=== PATIENT | female | born 1995 | race Caucasian/White ===

== ENCOUNTER 2017-05-25 15:33 | Emergency (ER) | payer MEDICAID, SELFPAY ==
[2017-05-25 15:36] VITALS: BP 131/92; PULSE 95; RESP 18; TEMP 36.1; O2SAT 99; BMI 26.1
--- NOTE | 2017-05-25 16:04 | ED.DCSUM_ITS ---
- ER Visit Summary Date of Service: 05/25/17 Chief Complaint: Anxiety History of Present Illness: The patient is a 22 F with anxiety that became worse today. Patient states she has been out of her Celexa for the past 2 weeks. Patient states she went out of town and missed an appointment with her primary care physician to get her Celexa refilled. Patient states she has an appointment tomorrow. Patient states that today however she became more anxious and depressed. Patient has a history of PTSD, depression, and anxiety. Patient states that she was feeling stress at work which triggered her anxiety. Patient denies any suicidal or homicidal ideations. She also admits to some dysuria over the past few days. Patient states she has been having difficulty with her urination. Patient states she feels like she is retaining urine. Patient denies any fevers or chills. Patient denies any nausea or vomiting. Patient denies any back pain. Physical Examination: All signs are stable. Patient is afebrile. Patient is in no acute distress. Oral mucosa is pink and moist. Heart was regular rate and rhythm. Lungs are clear and equal bilaterally. There is good respiratory effort noted. Abdomen is soft. There is mild suprapubic tenderness. There is no rebound or guarding noted. Cranial nerves II through XII are intact. There are no focal motor or sensory deficits noted. Patient is somewhat depressed and tearful at times on examination. Patient denies any suicidal homicidal ideations. Patient does have good judgment and insight. Patient does have normal speech pattern. Test Results: Urinalysis was obtained and did not show any evidence for urinary tract infection Treatment Plan: Patient was given a prescription for her Celexa for 10 days. Patient was instructed to follow-up with her primary care physician as scheduled. Patient understood and was agreeable with the plan. All were answered. Disposition: Discharged home Impression: Acute anxiety This note was generated with [employer]fair dictation software. It may contain incorrect words, spelling, and punctuation that were not noted in review of the chart prior to signing ED Disposition - Plan for ED Patient: Disposition: Home or Assisted Living Chief Complaint: Anxiety Diagnosis: Acute anxiety Instructions: ED Panic Attack Prescriptions: Citalopram Hydrobromide [Celexa] 20 mg PO DAILY #10 tab Referrals: Rashard Bennett MD [STAFF PHYSICIAN] -
[2017-05-25] MEDS: hydrOXYzine PAM 25 MG Capsule PO (16:34)
[2017-05-25 16:41] LABS: Bacteria 0 SEEN /hpf (None Seen); Mucous, Urine 0 SEEN /hpf (<or=2+); Red Blood Cells-Urine 0 SEEN /hpf (0-5); White Blood Cells 0 SEEN /hpf (0-5)
[2017-05-25 17:13] LABS: Color, Urine Yellow (Yellow); Glucose, Dipstick Normal (Normal); Ketone-Dipstick Negative (Negative); Leukocyte Esterase-Dipstick Negative /ul (Negative); Nitrite-Dipstick Negative (Negative); Occult Blood-Urine Negative /ul (Negative); Protein-Dipstick Negative (Negative); Urine Bilirubin Dipstick Negative (Negative); Urine Clarity Sl. Cloudy (Clear); Urine Urobilinogen Normal (Normal)
[2017-05-25 17:44] LABS: Squamous Epithelial Cells - UA 0-5 SEEN /hpf (5-10)
[2017-05-25 18:55] VITALS: BP 112/61; PULSE 70; RESP 16; O2SAT 100
== END 2017-05-25 18:56 | disposition home or self-care (01) ==
PROVIDERS: Emergency Provider Emergency Medicine; Family Provider Family Medicine; PCP Family Medicine
DX: F41.9 Anxiety disorder, unspecified (principal); F32.9 Major depressive disorder, single episode, unspecified; F43.10 Post-traumatic stress disorder, unspecified
CPT/HCPCS: 81001; 99283

== ENCOUNTER 2017-05-29 14:57 | Emergency (ER) | payer MEDICAID, SELFPAY ==
[2017-05-29 14:59] VITALS: BP 120/83; PULSE 128; RESP 20; TEMP 36.9; O2SAT 100; BMI 25.8
[2017-05-29] MEDS: LORazepam 2 MG/ML Syringe 0.5 MG IV (15:29)
[2017-05-29 15:32] VITALS: PULSE 87; RESP 14; O2SAT 100
[2017-05-29 16:10] VITALS: PULSE 74; RESP 12; O2SAT 96
--- NOTE | 2017-05-29 16:30 | ED.VISSUMM ---
- ER Visit Summary Date of Service: 05/29/17 Chief Complaint: Anxiety, shortness of breath, chest pain, paresthesia I am freaking out History of Present Illness: The patient is a 22 F who presents because of palpitations, chest pain, shortness of breath, paresthesia in all extremities and perioral. She states I am freaking out. She states when this started she was talking with her significant other about life. Nothing stressful. She denies headache. She denies any visual, ocular auditory symptoms. She denies trouble with speech or swallowing. She does report dry mouth. She does report palpitations and chest pain. She does report shortness of breath but denies cough. There is no pleuritic chest pain. She does complain of nausea without vomiting diarrhea or abdominal pain. She denies any urologic symptoms. She denies myalgias arthralgias. She denies rash. Neuro is positive for paresthesia throughout. She does report depression anxiety and PTSD. Physical Examination: Next field blood pressure 120/83 temperature 98 heart rate 128 respirations 28 and pulse ox 100% on room air. She is tearful and anxious. She is fidgeting. Head is atraumatic normocephalic. Pupils are equal round reactive. Extraocular muscles are intact. TMs are pearly white with landmarks noted. Nares patent with no drainage. Posterior pharynx without erythema or exudate. Uvula is midline. There is no dysphonia or dysphasia. Trachea is midline. There is no stridor with auscultation of the neck. She has bilateral [place] sign. Heart is rapid and regular without murmur, gallop or rub. Lungs are clear to auscultation. Abdomen is soft nontender. Lower extremity reveals no swelling, discoloration, leg vein distention, palpable cords or tenderness on the distribution of the deep venous system. She is alert and oriented ?3. Motor sensory intact. DTRs are brisk. There is no clonus or Babinski sign. Cranial 2 through 12 are intact. Test Results: None Emergency Department Course and Treatment: Patient's history and physical exam is consistent with anxiety/panic attack. She is presently hyperventilating. IV was established and she received 0.5 mg of Ativan IV push. Treatment Plan: Patient was reassessed at 1630. She is resting comfortably talking to significant other and family member. She was instructed to decrease the Celexa to 20 mg which she was on prior to discontinuation. Stop taking the 40 mg. And she was given a prescription for Ativan 0.5 mg. Disposition: Discharged home in stable and improved condition Impression: Anxiety reaction/panic attack Depression with history of anxiety disorder History of PTSD This note was generated with [employer] dictation software. It may contain incorrect words, spelling, and punctuation that were not noted in review of the chart prior to signing ED Disposition - Plan for ED Patient: Disposition: Home or Assisted Living Chief Complaint: Anxiety Instructions: ED Stress React, ED Panic Attack Prescriptions: Lorazepam [Ativan] 0.5 mg PO TID PRN PRN #5 tab PRN Reason: Anxiety Referrals: Emerson Thao MD [Primary Care Provider] - As Needed Additional Instructions: Discontinue Celexa 40 mg and resume 20 mg tablets.
[2017-05-29 16:52] VITALS: BP 102/65; PULSE 92; RESP 16; O2SAT 97
--- NOTE | 2017-05-29 16:53 | ED.RN ---
PT GIVEN WRITTEN AND VERBAL DISCHARGE INSTRUCTIONS AND HOME GOING PRESCRIPTIONS. PT VERBALIZES UNDERSTANDING AND DENIES ANY FURTHER QUESTIONS. PT IV D/C AND COVERED WITH 2X2 GAUZE DRESSING AND PAPER TAPE. PT AMBULATORY HOME WITH SIGNIFICANT OTHER, PT ADVISED NOT TO DRIVE.
== END 2017-05-29 16:56 | disposition home or self-care (01) ==
PROVIDERS: Emergency Provider Emergency Medicine; Family Provider Family Medicine; PCP Family Medicine
DX: F41.0 Panic disorder [episodic paroxysmal anxiety] (principal); F32.9 Major depressive disorder, single episode, unspecified; F43.10 Post-traumatic stress disorder, unspecified; Z87.891 Personal history of nicotine dependence
CPT/HCPCS: 96374; 99283

== ENCOUNTER 2017-06-13 18:54 | Emergency (ER) | payer MEDICAID, SELFPAY ==
[2017-06-13 18:55] VITALS: BP 112/61; PULSE 104; RESP 16; TEMP 37.1; O2SAT 99; BMI 25.7
[2017-06-13] MEDS: Naproxen 500 MG Tablet PO (19:19)
--- NOTE | 2017-06-13 19:20 | RAD_ITS ---
STUDY: X-RAY - RIGHT ANKLE REASON FOR EXAM: Female, 22 years old. Fall. Swelling and bruising. TECHNIQUE: 3 view(s) of the ankle. COMPARISON: None. FINDINGS: Normal visualized distal tibia and fibula. Normal medial and lateral malleoli. Normal tibiotalar articulation and ankle mortise. Normal visualized talus and calcaneus. The visualized subtalar, talonavicular, calcaneocuboid and tarsal articulations are normal. There is no demonstrated fracture. The soft tissue structures are unremarkable. RAD/Ankle min 3 Views IMPRESSION: Normal x-ray examination of the ankle. Electronically Signed: Scott Velez MD at 19:41 EDT , Service support ,
--- NOTE | 2017-06-13 19:56 | ED.VISSUMM ---
- ER Visit Summary Date of Service: 06/13/17 Chief Complaint: Injury right ankle History of Present Illness: The patient is a 22 F dense because of injury to right ankle. Had a plantar inversion mechanism injury. He states she heard a crack. She complains of pain with plantar flexion and weightbearing. She denies prior injury. She denies paresthesia, anesthesia buttocks. She has no other complaints. Physical Examination: There is soft tissue swelling over the lateral malleolus with pain to palpation of the distal 3 cm the lateral malleolus. There is pain abrasion over the anterior talofibular ligament. There is no laxity with anterior drawer test. There is no pain the patient of the medial malleolus. Is no pain the patient with base of the fifth metatarsal. DP PT pulses are palpable. Test Results: Three-view x-ray of the ankle was obtained and reviewed by me as negative. There is no evidence of fracture, and there is minimal soft tissue swelling. Emergency Department Course and Treatment: Based on the [place] ankle rule radiologic imaging is indicated. Treatment Plan: Anti-inflammatory, ice and elevation Disposition: Discharged home with appropriate home-going instructions Impression: Right ankle sprain, anterior talofibular ligament This note was generated with [employer] dictation software. It may contain incorrect words, spelling, and punctuation that were not noted in review of the chart prior to signing ED Disposition - Plan for ED Patient: Disposition: Home or Assisted Living Chief Complaint: Lower Extremity Injury Instructions: ED Sprain Ankle W X Ray Referrals: Emerson Thao MD [Primary Care Provider] - 10-14 Days if not better Additional Instructions: Withdrawal the alphabet with your foot 4-6 times a day. Apply ice 20-30 minutes at a time 6-8 times a day. Do not wear shoes with heel until pain-free and no running up or down inclines. Take either 4 Advil every 8 hours or 2 Aleve every 12 hours for the next 3-5 days for pain
--- NOTE | 2017-06-13 19:59 | ED.DCSUM_ITS ---
- ER Visit Summary Date of Service: 06/13/17 Chief Complaint: Injury right ankle History of Present Illness: The patient is a 22 F dense because of injury to right ankle. Had a plantar inversion mechanism injury. He states she heard a crack. She complains of pain with plantar flexion and weightbearing. She denies prior injury. She denies paresthesia, anesthesia buttocks. She has no other complaints. Physical Examination: There is soft tissue swelling over the lateral malleolus with pain to palpation of the distal 3 cm the lateral malleolus. There is pain abrasion over the anterior talofibular ligament. There is no laxity with anterior drawer test. There is no pain the patient of the medial malleolus. Is no pain the patient with base of the fifth metatarsal. DP PT pulses are palpable. Test Results: Three-view x-ray of the ankle was obtained and reviewed by me as negative. There is no evidence of fracture, and there is minimal soft tissue swelling. Emergency Department Course and Treatment: Based on the [place] ankle rule radiologic imaging is indicated. Treatment Plan: Anti-inflammatory, ice and elevation Disposition: Discharged home with appropriate home-going instructions Impression: Right ankle sprain, anterior talofibular ligament This note was generated with [employer] dictation software. It may contain incorrect words, spelling, and punctuation that were not noted in review of the chart prior to signing ED Disposition - Plan for ED Patient: Disposition: Home or Assisted Living Chief Complaint: Lower Extremity Injury Instructions: ED Sprain Ankle W X Ray Referrals: Emerson Thao MD [Primary Care Provider] - 10-14 Days if not better Additional Instructions: Withdrawal the alphabet with your foot 4-6 times a day. Apply ice 20-30 minutes at a time 6-8 times a day. Do not wear shoes with heel until pain-free and no running up or down inclines. Take either 4 Advil every 8 hours or 2 Aleve every 12 hours for the next 3-5 days for pain
[2017-06-13 20:09] VITALS: PULSE 102; RESP 14; O2SAT 98
== END 2017-06-13 20:09 | disposition home or self-care (01) ==
PROVIDERS: Emergency Provider Emergency Medicine; Family Provider Family Medicine; PCP Family Medicine
DX: S93.491A Sprain of other ligament of right ankle, initial encounter (principal); X50.1XXA Overexertion from prolonged static or awkward postures, initial encounter; Y93.9 Activity, unspecified; Y92.89 Other specified places as the place of occurrence of the external cause; Y99.9 Unspecified external cause status
CPT/HCPCS: 73610; 99282

== ENCOUNTER 2017-07-23 02:10 | Emergency (ER) | payer MEDICAID, SELFPAY ==
--- NOTE | 2017-07-23 02:10 | DT_ITS ---
This patient was seen during an EMR downtime July 19, 2017 - July 26, 2017. This patient may have a combination of paper and electronic documentation or all paper documentation. All documentation is viewable within the e-chart portion of [facility] for each patient visit.
== END 2017-07-23 02:35 | disposition home or self-care (01) ==
PROVIDERS: Emergency Provider Emergency Medicine; Family Provider Family Medicine; PCP Family Medicine
DX: J01.00 Acute maxillary sinusitis, unspecified (principal)
CPT/HCPCS: 99283

== ENCOUNTER 2017-07-26 12:51 | Emergency (ER) | payer MEDICAID, SELFPAY ==
[2017-07-26] VITALS (7 sets, daily range): BP systolic 105–138; BP diastolic 60–85; PULSE 47–69; RESP 16–17; TEMP 36.2; O2SAT 98–100; BMI 25.2
--- NOTE | 2017-07-26 12:51 | DT_ITS ---
This patient was seen during an EMR downtime July 19, 2017 - July 26, 2017. This patient may have a combination of paper and electronic documentation or all paper documentation. All documentation is viewable within the e-chart portion of [employer] for each patient visit.
--- NOTE | 2017-07-26 13:19 | EKG12_ITS ---
Test Reason : Blood Pressure : / mmHG Vent. Rate : 044 BPM Atrial Rate : 044 BPM P-R Int : 154 ms QRS Dur : 082 ms QT Int : 384 ms P-R-T Axes : 040 049 030 degrees QTc Int : 328 ms Marked sinus bradycardia Abnormal ECG Confirmed by SHANTELL CUNNINGHAM MD ([id number]), development editor VIVIAN CERVANTES ([id number] on 07/28/2017 5:15:28 PM Referred By: Mahin Blue Confirmed By:SHANTELL CUNNINGHAM MD
--- NOTE | 2017-07-26 13:20 | ED.VISSUMM ---
- ER Visit Summary Date of Service: 07/26/17 Chief Complaint: Suicidal ideation History of Present Illness: The patient is a 22 F with history of bipolar disorder who presents for 1 week of suicidal ideation. Patient states that she feels like she is going crazy. 2 weeks ago she had her Celexa abruptly discontinued and changed to Seroquel by her doctor. She feels like her symptoms are much worse now. She is having suicidal thoughts, such as driving her car into a tree. She is unable to sleep and feels depressed and anxious. She called a crisis line last night and was told to taper off her Seroquel but did not receive any further assistance. She is legitimately concerned that she may harm herself and thus presents for evaluation. Physical Examination: Vital signs: afebrile, hemodynamically stable, no hypoxia on room air General: well nourished, well developed, in no distress and not tearful Skin: warm, dry, no rash, no pallor HEENT: normocephalic and atraumatic; PERRL, EOMI, moist mucous membranes Cardiovascular: regular rate and rhythm without murmurs, no peripheral edema, 2+ pulses all distal extremities Respiratory: No increased work of breathing, lungs are clear to auscultation bilaterally, no rales, rhonchi or wheezing Abdominal: Abdomen is soft, nontender with normoactive bowel sounds, no guarding or rebound, no masses MSK: Moves all extremities, no deformities, normal strength Neuro: Awake and alert, oriented ?4. No facial droop, sensation and motor function intact and symmetric Psych: Depressed affect, tearful, positive suicidal ideation, no evidence of response to internal stimuli, no hallucinations Test Results: Abnormal Lab Results 07/26/17 07/26/17 07/26/17 13:57 13:57 13:57 WBC 5.7 RBC 4.27 Hgb 13.6 Hct 40.4 MCV 94.6 MCH 31.9 MCHC 33.7 RDW 12.4 RDW Differential 42.0 Plt Count 255 MPV 11.3 Immature Gran % (Auto) 0.200 Neut % (Auto) 71.1 H Lymph % (Auto) 22.3 [place] % (Auto) 4.8 Eos % (Auto) 1.2 Baso % (Auto) 0.4 Absolute Neuts (auto) 4.0 Absolute Lymphs (auto) 1.26 Total Counted Not Reportable Sodium 141 Potassium 3.9 Chloride 108 H Carbon Dioxide 25.0 Anion Gap 8 BUN 14 Creatinine 0.72 Est GFR (MDRD) Af Amer 133 Est GFR (MDRD) Non-Af 110 BUN/Creatinine Ratio 19.5 Glucose 78 Calcium 9.4 Total Bilirubin 0.40 AST 29 ALT 33 Alkaline Phosphatase 54 Total Protein 8.0 Albumin 3.9 Globulin 4.1 Albumin/Globulin Ratio 1.0 Serum , Qual Urine Opiates Screen Urine Methadone Screen Ur Barbiturates Screen Ur Phencyclidine Scrn Ur Amphetamines Screen U Methamphetamin-MDMA U Benzodiazepines Scrn Urine Cocaine Screen U Cannabinoids Screen Ur Drug Screen Comment Ethyl Alcohol < 3.0 07/26/17 07/26/17 13:57 14:05 WBC RBC Hgb Hct MCV MCH MCHC RDW RDW Differential Plt Count MPV Immature Gran % (Auto) Neut % (Auto) Lymph % (Auto) [place] % (Auto) Eos % (Auto) Baso % (Auto) Absolute Neuts (auto) Absolute Lymphs (auto) Total Counted Sodium Potassium Chloride Carbon Dioxide Anion Gap BUN Creatinine Est GFR (MDRD) Af Amer Est GFR (MDRD) Non-Af BUN/Creatinine Ratio Glucose Calcium Total Bilirubin AST ALT Alkaline Phosphatase Total Protein Albumin Globulin Albumin/Globulin Ratio Serum , Qual NEGATIVE Urine Opiates Screen NEGATIVE Urine Methadone Screen NEGATIVE Ur Barbiturates Screen NEGATIVE Ur Phencyclidine Scrn NEGATIVE Ur Amphetamines Screen NEGATIVE U Methamphetamin-MDMA NEGATIVE U Benzodiazepines Scrn NEGATIVE Urine Cocaine Screen NEGATIVE U Cannabinoids Screen POSITIVE H Ur Drug Screen Comment Ethyl Alcohol Emergency Department Course and Treatment: Patient was medically cleared for evaluation by crisis counselor. Patient is actively suicidal and would benefit from inpatient treatment of her depression and suicidal ideation. Patient was accepted to [facility] for transfer for further inpatient management. Treatment Plan: [] Disposition: [] Impression: Suicidal ideation This note was generated with [employer] dictation software. It may contain incorrect words, spelling, and punctuation that were not noted in review of the chart prior to signing ED Disposition - Plan for ED Patient: Chief Complaint: Mental Health Referrals: Emerson Thao MD [Primary Care Provider] -
[2017-07-26 14:06] LABS: Absolute Lymphocyte Count 1.26 X10^3/ul (0.83-4.51); Basophil# 0.02 X10^3/uL; Basophil% 0.4 % (0-1); Eosinophil# 0.07 X10^3/uL; Eosinophils% 1.2 % (0-5); Hematocrit 40.4 % (37-47); Hemoglobin 13.6 g/dl (12.0-15.0); Lymphocyte # 1.26 X10^3/ul (4.0); Lymphocyte % 22.3 % (19-41); Mean Corp Hgb Conc 33.7 g/gl (32-36); Mean Corpuscular Hgb 31.9 pg (27.0-32.0); Mean Corpuscular Volume 94.6 fL (81-99); Mean Platelet Vol. 11.3 fl (6.2-12.0); Monocyte# 0.27 X10^3/uL; Monocyte% 4.8 % (0-10); Neutrophil # 4.03 X10^3/uL (2.7-7.7); Neutrophil % 71.1 % (47-70); POSITIVE COUNT NO; POSITIVE DIFFERENTIAL NO; POSITIVE MORPHOLOGY NO; Platelet Count 255 K/mm3 (150-450); RBC Distribution Width CV 12.4 % (11.6-14.6); Red Blood Count 4.27 M/mm3 (4.2-5.4); White Blood Count 5.7 K/mm3 (4.4-11.0)
[2017-07-26 14:21] LABS: AST(SGOT) 29 U/L (15-37); Alanine Aminotransfer ALT/SGPT 33 U/L (13-56); Albumin, Serum 3.9 g/dL (3.2-5.0); Alkaline Phosphatase 54 U/L (45-117); Anion Gap 8 (5-15); BUN 14 mg/dL (7-18); BUN/Creat Ratio 19.5 RATIO (10-20); Calcium,Total 9.4 mg/dL (8.5-10.1); Chloride 108 mmol/L (98-107); Creatinine, Serum 0.72 mg/dL (0.55-1.02); EST Glomerular Filtration Rate 110 mL/min (>60); Est Glom Filt Rate - Afr Amer 133 mL/min (>60); Globulin 4.1 g/dL (2.2-4.2); Glucose 78 mg/dL (74-106); Potassium 3.9 mmol/L (3.5-5.1); Sodium Level 141 mmol/L (136-145)
[2017-07-26 14:30] LABS: Alcohol, Blood (Medical)-Serum < 3.0 mg/dL
[2017-07-26 14:31] LABS: Amphetamine Urine VISTA NEGATIVE (<1000 ng/mL); Barbiturate Urine VISTA NEGATIVE (< 200 ng/mL); Benzodiazepine Urine VISTA NEGATIVE (< 200 ng/mL); Cocaine Urine VISTA NEGATIVE (< 300 ng/mL); Ecstacy Urine VISTA NEGATIVE (< 500 ng/mL); Methadone Urine VISTA NEGATIVE (< 300 ng/mL); PCP Urine VISTA NEGATIVE (< 25 ng/mL); THC Urine VISTA POSITIVE (< 50 ng/mL); Vista UDS pH Range 7
[2017-07-26 14:45] LABS: Pregnancy, Serum, hCG Quali. NEGATIVE Negative (0-9 Nonpreg)
--- NOTE | 2017-07-26 15:06 | NURSING ---
TALKED TO VALERY AT [facility]. IS HEADING RIGHT OVER
--- NOTE | 2017-07-26 20:20 | ED.RN ---
transport to [facility] pt.
== END 2017-07-26 20:20 | disposition short-term general hospital (02) ==
LOC: ED 13:22
PROVIDERS: Emergency Provider Emergency Medicine; Family Provider Family Medicine; PCP Family Medicine
DX: R45.851 Suicidal ideations (principal); F31.9 Bipolar disorder, unspecified
CPT/HCPCS: 80053; 80307; 80320; 84703; 85025; 93005; 99284; G0480

== ENCOUNTER 2017-12-15 14:18 | Emergency (ER) | payer MEDICAID, SELFPAY ==
[2017-12-15 14:19] VITALS: BP 118/61; PULSE 61; RESP 16; TEMP 36.3; O2SAT 100; BMI 25.9
--- NOTE | 2017-12-15 14:31 | ED.VISSUMM ---
- ER Visit Summary Date of Service: 12/15/17 Chief Complaint: Nasal congestion, postnasal drainage, sore throat, water behind ears and nocturnal cough History of Present Illness: The patient is a 22 F who has been seen at urgent care center and other facilities and diagnosed with serous otitis and allergic rhinitis. She denies fever, chills night sweats. She denies ocular, visual or auditory symptoms. She denies ringing or ears, decreased hearing. She does report cough at night because of the postnasal drainage. Her cough is nonproductive. She denies sour eructation or heartburn. She states she was not able to afford the medication the nurse practitioner prescribed. Physical Examination: Vital signs noted and are normal. Pupils equal round reactive paradoxic muscle intact. TMs reveal dullness on the right side. Otherwise otoscopic exam normal. Nares patent with slight clear drainage with bryant nasal mucosa. Uvula midline. No erythema XA. There is postnasal drainage noted. Trachea midline. There is 1 mobile smooth nontender left anterior cervical node noted. Heart is regular without murmur, gallop or rub. S1 and S2 are normal. Lungs are clear to auscultation with good movement of air bilaterally. Test Results: None Emergency Department Course and Treatment: Patient was told she has allergic rhinitis. Recommended nasal spray. She states she is presently on Flonase. Will add a steroid nasal spray and referral to [facility] since she does not have insurance. Treatment Plan: Nasal spray Disposition: Discharge follow-up at [facility] Impression: 1. Allergic rhinitis 2. Serous otitis right ear This note was generated with [employer] dictation software. It may contain incorrect words, spelling, and punctuation that were not noted in review of the chart prior to signing ED Disposition - Plan for ED Patient: Disposition: Home or Assisted Living Chief Complaint: Sore Throat Instructions: ED Allergy Nasal Prescriptions: Beclomethasone Dipropionate [Beconase Aq] 25 gm NS BID #1 spray Referrals: Emerson Thao MD [Primary Care Provider] - [facility] [NON-STAFF] - 1-2 Weeks Additional Instructions: Your prescription was electronically transmitted to [facility] your designated pharmacy.
--- NOTE | 2017-12-15 14:36 | ED.DCSUM_ITS ---
- ER Visit Summary Date of Service: 12/15/17 Chief Complaint: Nasal congestion, postnasal drainage, sore throat, water behind ears and nocturnal cough History of Present Illness: The patient is a 22 F who has been seen at urgent care center and other facilities and diagnosed with serous otitis and allergic rhinitis. She denies fever, chills night sweats. She denies ocular, visual or auditory symptoms. She denies ringing or ears, decreased hearing. She does report cough at night because of the postnasal drainage. Her cough is nonproductive. She denies sour eructation or heartburn. She states she was not able to afford the medication the nurse practitioner prescribed. Physical Examination: Vital signs noted and are normal. Pupils equal round reactive paradoxic muscle intact. TMs reveal dullness on the right side. Otherwise otoscopic exam normal. Nares patent with slight clear drainage with bryant nasal mucosa. Uvula midline. No erythema XA. There is postnasal drainage noted. Trachea midline. There is 1 mobile smooth nontender left anterior cervical node noted. Heart is regular without murmur, gallop or rub. S1 and S2 are normal. Lungs are clear to auscultation with good movement of air bilaterally. Test Results: None Emergency Department Course and Treatment: Patient was told she has allergic rhinitis. Recommended nasal spray. She states she is presently on Flonase. Will add a steroid nasal spray and referral to [facility] since she does not have insurance. Treatment Plan: Nasal spray Disposition: [facility] Impression: 1. Allergic rhinitis 2. Serous otitis right ear This note was generated with [employer] dictation software. It may contain incorrect words, spelling, and punctuation that were not noted in review of the chart prior to signing ED Disposition - Plan for ED Patient: Disposition: Home or Assisted Living Chief Complaint: Sore Throat Instructions: ED Allergy Nasal Prescriptions: Beclomethasone Dipropionate [Beconase Aq] 25 gm NS BID #1 spray Referrals: Emerson Thao MD [Primary Care Provider] - [facility] [NON-STAFF] - 1-2 Weeks Additional Instructions: Your prescription was electronically transmitted to [facility] your designated pharmacy.
== END 2017-12-15 14:50 | disposition home or self-care (01) ==
PROVIDERS: Emergency Provider Emergency Medicine; Family Provider Family Medicine; PCP Family Medicine
DX: J30.9 Allergic rhinitis, unspecified (principal); H65.91 Unspecified nonsuppurative otitis media, right ear
CPT/HCPCS: 99281

== ENCOUNTER 2018-05-09 06:30 | Emergency (ER) | payer MEDICAID, SELFPAY ==
[2018-05-09 06:31] VITALS: BP 111/71; PULSE 58; RESP 16; TEMP 36.8; O2SAT 100; BMI 25.7
[2018-05-09 06:35] VITALS: RESP 16
--- NOTE | 2018-05-09 06:44 | ED.VIS.GEN ---
History of Present Illness Chief Complaint: Chest Other Narrative: Stated for the last 2 days she has noticed some muscle spasms under her right breast where her ribs are. She is never had this before. Current severity is resolved. They come and go. No home treatment. She is never had this before. Wanted to get checked out. Denies associated symptoms. Past Medical History - Allergies and Home Meds Allergies/Adverse Reactions: Allergies No Known Allergies Allergy (Verified 05/09/18 06:39) Primary Care Physician: Emerson Thao MD [Primary Care Provider] - Prior records reviewed: Yes Past Medical History: - - Anxiety Surgical History: noncontributory Lives: With Family Smoking Status: Current some day smoker Alcohol: None Drugs: None Review of Systems General: Denies: Chills, Fever, Sweats Eyes: Denies: Visual changes - bilaterally, Diplopia ENT: Denies: Rhinorrhea, Sore throat Cardiovascular: Denies: Chest pain, Palpitations Respiratory: Denies: Dyspnea, Cough, Dyspnea on exertion Gastrointestinal: Denies: Abdominal pain, Nausea, Vomiting, Diarrhea, Melena, Hematochezia Genitourinary: Denies: Dysuria, Hematuria, Frequency Musculoskeletal: Denies: Back pain, Extremity Pain Skin: Denies: Rash, Wounds Neurological: Denies: Headache, Weakness, Numbness Physical Exam Vital Signs/Narrative: Vital Signs Temp Pulse Resp BP Pulse Ox 05/09/18 06:35 16 05/09/18 06:31 98.3 F 58 L 16 111/71 100 General: Well nourished, Well developed, No Acute Distress Head: Normocephalic, Atraumatic Eyes: Perrl, EOMI ENT: Moist mucous membranes, No rhinorrhea Neck: Supple, Nontender Cardiovascular: Regular rate, Regular rhythm, No murmurs Respiratory: No distress, CTA bilaterally, Chest nontender Abdomen: Soft, Nontender, Nondistended, Normal bowel sounds Back: Nontender, Normal Inspection Extremities: Nontender, No edema Skin: Normal color, No rash Neurological: Alert, Oriented x3, Cranial nerves II-XII grossly intact, Normal Strength, Normal Sensation Psychological: Normal affect, Normal Mood Diagnostic/Tx/Re-eval - Medical Decision Making Reassured. At this time she is having intermittent intercostal muscle spasms. Will use ibuprofen and follow-up as an outpatient. ED Disposition - Plan for ED Patient: Disposition: Home or Assisted Living Diagnosis: Muscle spasm Instructions: Muscle Spasm Referrals: Emerson Thao MD [Primary Care Provider] -
[2018-05-09 06:58] VITALS: RESP 16
== END 2018-05-09 06:58 | disposition home or self-care (01) ==
LOC: ED 06:52
PROVIDERS: Emergency Provider Emergency Medicine; Family Provider Family Medicine; PCP Family Medicine
DX: M62.838 Other muscle spasm (principal); F17.200 Nicotine dependence, unspecified, uncomplicated
CPT/HCPCS: 99282

== ENCOUNTER 2018-06-05 22:39 | Emergency (ER) | payer MEDICAID, SELFPAY ==
[2018-06-05 22:40] VITALS: BP 105/59; PULSE 70; RESP 16; TEMP 36.6; O2SAT 99; BMI 25.8
--- NOTE | 2018-06-05 23:10 | ED.VIS.GEN ---
History of Present Illness Chief Complaint: Allergic Reaction Informant: Patient Narrative: Patient stated stated just prior to arrival she drank a great Minute Maid and developed red face. [place] hot. She felt like her throat might be scratchy. Came for further evaluation. It is resolved. No home treatment. She does have anxiety she got her anxiety worked up so she came in. She is never had anything like this happen before. Past Medical History - Allergies and Home Meds Allergies/Adverse Reactions: Allergies No Known Allergies Allergy (Verified 06/05/18 22:46) Primary Care Physician: Emerson Thao MD [Primary Care Provider] - Prior records reviewed: Yes Past Medical History: - - Anxiety Surgical History: noncontributory Smoking Status: Never smoker Alcohol: None Drugs: None Review of Systems General: Denies: Chills, Fever, Sweats Eyes: Denies: Visual changes - bilaterally, Diplopia ENT: Denies: Rhinorrhea, Sore throat Cardiovascular: Denies: Chest pain, Palpitations Respiratory: Denies: Dyspnea, Cough, Dyspnea on exertion Gastrointestinal: Denies: Abdominal pain, Nausea, Vomiting, Diarrhea, Melena, Hematochezia Genitourinary: Denies: Dysuria, Hematuria, Frequency Musculoskeletal: Denies: Back pain, Extremity Pain Skin: Denies: Rash, Wounds Neurological: Denies: Headache, Weakness, Numbness Physical Exam Vital Signs/Narrative: Vital Signs Temp Pulse Resp BP Pulse Ox 06/05/18 22:40 98 F 70 16 105/59 L 99 General: Well nourished, Well developed, No Acute Distress Head: Normocephalic, Atraumatic Eyes: Perrl, EOMI ENT: Moist mucous membranes, No rhinorrhea Neck: Supple, Nontender Cardiovascular: Regular rate, Regular rhythm, No murmurs Respiratory: No distress, CTA bilaterally, Chest nontender Abdomen: Soft, Nontender, Nondistended, Normal bowel sounds Back: Nontender, Normal Inspection Extremities: Nontender, No edema Skin: Normal color, No rash Neurological: Alert, Oriented x3, Cranial nerves II-XII grossly intact, Normal Strength, Normal Sensation Psychological: Normal affect, Normal Mood Diagnostic/Tx/Re-eval - Medical Decision Making Patient is resting comfortably. She may have had a side effect to the grapes. I do not feel she has any significant allergic reaction. She will be discharged. ED Disposition - Plan for ED Patient: Disposition: [facility] Diagnosis: Food intolerance Instructions: ED Allergic Reaction Local Other Referrals: Emerson Thao MD [Primary Care Provider] -
--- NOTE | 2018-06-05 23:14 | ED.DCSUM_ITS ---
History of Present Illness Chief Complaint: Allergic Reaction Informant: Patient Narrative: Patient stated stated just prior to arrival she drank a great Min[place] Maid and developed red face. [place] hot. She felt like her throat might be scratchy. Came for further evaluation. It is resolved. No home treatment. She does have anxiety she got her anxiety worked up so she came in. She is never had anything like this happen before. Past Medical History - Allergies and Home Meds Allergies/Adverse Reactions: Allergies No Known Allergies Allergy (Verified 06/05/18 22:46) Primary Care Physician: Emerson Thao MD [Primary Care Provider] - Prior records reviewed: Yes Past Medical History: - - Anxiety Surgical History: noncontributory Smoking Status: Never smoker Alcohol: None Drugs: None Review of Systems General: Denies: Chills, Fever, Sweats Eyes: Denies: Visual changes - bilaterally, Diplopia ENT: Denies: Rhinorrhea, Sore throat Cardiovascular: Denies: Chest pain, Palpitations Respiratory: Denies: Dyspnea, Cough, Dyspnea on exertion Gastrointestinal: Denies: Abdominal pain, Nausea, Vomiting, Diarrhea, Melena, Hematochezia Genitourinary: Denies: Dysuria, Hematuria, Frequency Musculoskeletal: Denies: Back pain, Extremity Pain Skin: Denies: Rash, Wounds Neurological: Denies: Headache, Weakness, Numbness Physical Exam Vital Signs/Narrative: Vital Signs Temp Pulse Resp BP Pulse Ox 06/05/18 22:40 98 F 70 16 105/59 L 99 General: Well nourished, Well developed, No Acute Distress Head: Normocephalic, Atraumatic Eyes: Perrl, EOMI ENT: Moist mucous membranes, No rhinorrhea Neck: Supple, Nontender Cardiovascular: Regular rate, Regular rhythm, No murmurs Respiratory: No distress, CTA bilaterally, Chest nontender Abdomen: Soft, Nontender, Nondistended, Normal bowel sounds Back: Nontender, Normal Inspection Extremities: Nontender, No edema Skin: Normal color, No rash Neurological: Alert, Oriented x3, Cranial nerves II-XII grossly intact, Normal Strength, Normal Sensation Psychological: Normal affect, Normal Mood Diagnostic/Tx/Re-eval - Medical Decision Making Patient is resting comfortably. She may have had a side effect to the grapes. I do not feel she has any significant allergic reaction. She will be discharged. ED Disposition - Plan for ED Patient: Disposition: [facility] Diagnosis: Food intolerance Instructions: ED Allergic Reaction Local Other Referrals: Emerson Thao MD [Primary Care Provider] -
[2018-06-05 23:18] VITALS: BP 112/74; PULSE 80; RESP 14; O2SAT 98
== END 2018-06-05 23:20 | disposition home or self-care (01) ==
PROVIDERS: Emergency Provider Emergency Medicine; Family Provider Family Medicine; PCP Family Medicine
DX: K90.49 Malabsorption due to intolerance, not elsewhere classified (principal)
CPT/HCPCS: 99282

== ENCOUNTER 2018-06-17 19:55 | Emergency (ER) | payer MEDICAID, SELFPAY ==
[2018-06-17 19:56] VITALS: BP 112/64; PULSE 61; RESP 18; TEMP 36.6; O2SAT 97; BMI 25.7
--- NOTE | 2018-06-17 20:53 | ED.DCSUM_ITS ---
- ER Visit Summary Date of Service: 06/17/18 Chief Complaint: Cat bite History of Present Illness: The patient is a 23 F who presents with cat bite to her right hand that occurred today. Patient states she was bitten by her own cat. Patient states the cat's immunizations are up-to-date. Patient states her immunizations are up-to-date. Patient states she cleaned the area with peroxide immediately and dressed it with Neosporin ointment. Patient denies any paresthesias or weakness. Patient states the bleeding stopped after a few minutes. Physical Examination: Vital signs are stable. Patient is afebrile. Patient is in no acute distress. There are 2 small puncture wounds noted over the dorsal aspect of the right hand. There is no active bleeding noted. There is no erythema. There is some mild tenderness around the puncture wounds. There is no bony crepitance or step-off. Sensation was intact to light touch in all digits. Capillary refill was less than 2 seconds in all digits. There is full range of motion of all digits as well as the right wrist. The remaining physical exam is within normal limits. Emergency Department Course and Treatment: Neosporin dressing was applied to the wounds. The patient was started on Augmentin. Patient was given a prescription for Augmentin. Patient was instructed to keep the wounds clean and dry. Patient was instructed to follow-up with her primary care physician in 3 to 5 d ays. Patient was advised on signs and symptoms of infection and when to return to the emergency department. Patient and her understood and were agreeable with the plan. All questions were answered. Disposition: Discharge home Impression: Cat bite right hand This note was generated with [employer] dictation software. It may contain incorrect words, spelling, and punctuation that were not noted in review of the chart prior to signing ED Disposition - Plan for ED Patient: Disposition: Home or Assisted Living Diagnosis: Cat bite of right hand Instructions: ED Bite Cat Prescriptions: Amox/Clavulanate Tablet [Augmentin Tablet] 875 mg PO Q12H #20 tab Referrals: Emerson Thao MD [Primary Care Provider] - 3-5 Days
[2018-06-17] MEDS: Amox/Clavulanate 875 MG Tablet PO (21:05)
[2018-06-17 21:11] VITALS: PULSE 55; RESP 16; O2SAT 100
== END 2018-06-17 21:12 | disposition home or self-care (01) ==
PROVIDERS: Emergency Provider Emergency Medicine; Family Provider Family Medicine; PCP Family Medicine
DX: S61.431A Puncture wound without foreign body of right hand, initial encounter (principal); X58.XXXA Exposure to other specified factors, initial encounter; Y93.9 Activity, unspecified; Y92.89 Other specified places as the place of occurrence of the external cause; Y99.9 Unspecified external cause status
CPT/HCPCS: 99283

== ENCOUNTER 2018-06-18 04:33 | Emergency (ER) | payer MEDICAID, SELFPAY ==
[2018-06-17 19:56] VITALS: BMI 25.7
[2018-06-18 04:35] VITALS: BP 104/61; PULSE 66; RESP 17; TEMP 36.8; O2SAT 97; BMI 28.0
--- NOTE | 2018-06-18 05:00 | RAD_ITS ---
STUDY: X-RAY - RIGHT HAND REASON FOR EXAM: Female, 23 years old. Calcified TECHNIQUE: 3 view(s) of the hand. COMPARISON: None. FINDINGS: Normal radiocarpal articulation. Normal distal radioulnar joint. Normal visualized carpal bones. Normal carpal articulations Normal carpometacarpal articulation of the thumb. Normal second through fifth carpometacarpal joints. Normal metacarpi. Normal metacarpophalangeal joint of the thumb. Normal interphalangeal joint of the thumb. Normal proximal and distal phalanges of the thumb. Normal metacarpophalangeal joints of the second through fifth fingers. Normal proximal and distal interphalangeal joints of the second through fifth fingers. Normal phalanges of the second through fifth fingers. The soft tissue structures are unremarkable. RAD/Hand Min 3 Views IMPRESSION: Normal x-ray examination of the hand. Electronically Signed: Cristina Bronson, at 6:35 EDT Tel , Service support ,
[2018-06-18] MEDS: Morphine 4 MG/ML Syringe IV (05:25)
[2018-06-18] MEDS: Ondansetron 4 MG/2 ML Vial IV (05:25)
[2018-06-18 05:41] LABS: Absolute Lymphocyte Count 2.19 X10^3/ul (0.83-4.51); Absolute Neutrophil Count 5.1 X10^3/uL (2.0-7.7); Basophil# 0.01 X10^3/uL; Basophil% 0.1 % (0-1); Eosinophil# 0.12 X10^3/uL; Eosinophils% 1.5 % (0-5); Hematocrit 34.5 % (37-47); Hemoglobin 11.6 g/dl (12.0-15.0); Lymphocyte # 2.19 X10^3/ul (4.0); Lymphocyte % 27.9 % (19-41); Mean Corp Hgb Conc 33.6 g/gl (32-36); Mean Corpuscular Volume 92.2 fL (81-99); Mean Platelet Vol. 11.3 fl (6.2-12.0); Monocyte# 0.39 X10^3/uL; Neutrophil # 5.14 X10^3/uL (2.7-7.7); Neutrophil % 65.4 % (47-70); Platelet Count 243 K/mm3 (150-450); RBC Distribution Width CV 12.4 % (11.6-14.6); RBC Distribution Width SD 42.1 fl (35.1-43.9); Red Blood Count 3.74 M/mm3 (4.2-5.4); White Blood Count 7.9 K/mm3 (4.4-11.0)
[2018-06-18 05:42] LABS: POSITIVE COUNT NO; POSITIVE DIFFERENTIAL NO; POSITIVE MORPHOLOGY NO
[2018-06-18 05:55] LABS: Erythrocyte Sedimentation Rate 2 mm/hr (0-20)
[2018-06-18 05:56] LABS: Anion Gap 5 (5-15); BUN 17 mg/dL (7-18); BUN/Creat Ratio 27.8 RATIO (10-20); CRP < 2.90 mg/L (0.0-3.0); Calcium,Total 8.5 mg/dL (8.5-10.1); Chloride 109 mmol/L (98-107); Creatinine, Serum 0.61 mg/dL (0.55-1.02); EST Glomerular Filtration Rate 131 mL/min (>60); Est Glom Filt Rate - Afr Amer 159 mL/min (>60); Estimated Creatinine Clearance 141.87 ml/min; Glucose 96 mg/dL (74-106); Potassium 3.9 mmol/L (3.5-5.1); Sodium Level 141 mmol/L (136-145)
--- NOTE | 2018-06-18 06:49 | ED.VISSUMM ---
- ER Visit Summary Date of Service: 06/18/18 Chief Complaint: Right hand pain History of Present Illness: The patient is a 23 F presenting with right hand pain. Patient was seen in the ED yesterday evening for cat bite right hand. She was put on Augmentin. Her tetanus is up-to-date. She was bitten by her own cat. She woke up with increasing pain in her right hand. No fever. No other complaints. Physical Examination: Vitals are stable. Patient is afebrile. Alert no acute distress. HEENT exam is unremarkable. Neck is supple. Lungs are clear and equal bilaterally. Heart is regular rate and rhythm. Extremities ecchymosis and swelling to the right dorsal hand with 3 puncture wounds. There is no erythema or warmth. No lymphangitic streaking. Neurovascularly intact distally. She has normal range of motion of her fingers but this increases the pain in her dorsal hand. Skin is warm and dry. No focal neurologic deficit. Remainder of exam is unremarkable. Emergency Department Course and Treatment: X-ray right hand shows no acute process. CBC, chemistries unremarkable. Sed rate is 2. CRP is less than 2.9. Patient was given morphine, Zofran IV with improvement of her pain. She was observed and continues to have no erythema or warmth of her hand. She is advised strict return instructions. She is advised to ice and elevate. Advised to continue her Augmentin. Advised to return to the ED if she has any worsening symptoms. Advised to follow-up with primary care physician. Disposition: Discharge home Impression: Cat bite right hand This note was generated with [employer] dictation software. It may contain incorrect words, spelling, and punctuation that were not noted in review of the chart prior to signing ED Disposition - Plan for ED Patient: Instructions: ED Bite Cat Referrals: Emerson Thoa MD [Primary Care Provider] -
--- NOTE | 2018-06-18 07:02 | ED.DEP ---
ED Disposition - Plan for ED Patient: Instructions: ED Bite Cat Referrals: Emerson Thao MD [Primary Care Provider] -
[2018-06-18 07:10] VITALS: BP 104/79; PULSE 83; RESP 14; O2SAT 99
== END 2018-06-18 07:54 | disposition home or self-care (01) ==
LOC: ED 05:20
PROVIDERS: Emergency Provider Emergency Medicine; Family Provider Family Medicine; PCP Family Medicine
DX: S61.431A Puncture wound without foreign body of right hand, initial encounter (principal); W55.01XA Bitten by cat, initial encounter; Y93.9 Activity, unspecified; Y92.89 Other specified places as the place of occurrence of the external cause; Y99.9 Unspecified external cause status
CPT/HCPCS: 73130; 80048; 85025; 85652; 86140; 99283; A4216; J2405

== ENCOUNTER → 2018-06-23 09:23 | Outpatient (CLI) | payer MEDICAID, SELFPAY ==
[2018-06-05 22:40] VITALS: BMI 25.8
[2018-06-18 04:35] VITALS: BMI 28.0
--- NOTE | 2018-06-23 09:26 | CT_ITS ---
STUDY: CT MAXILLOFACIAL SINUSES REASON FOR EXAM: Female, 23 years old. Chronic sinusitis RADIATION DOSAGE (If Supplied By Facility): CTDIvol = ( 29.38 ) mGy, DLP = ( 481.34 ) mGycm TECHNIQUE: The patient was scanned in a multi detector CT scanner. High resolution axial imaging was performed without the administration of intravenous contrast material. Sagittal and coronal images were reconstructed. Individualized dose optimization techniques were used for this CT. COMPARISON: None. FINDINGS: FRONTAL SINUSES: Normal aeration, without mucosal inflammatory disease. ETHMOIDAL SINUSES: Normal aeration, without mucosal inflammatory disease. MAXILLARY SINUSES: Normal aeration, without mucosal inflammatory disease. Incidentally noted are thin osseous septations in the posterior aspect of the bilateral maxillary sinuses. SPHENOIDAL SINUSES: Normal aeration, without mucosal inflammatory disease. There is patency of the bilateral maxillary infundibuli with normal uncinate processes, ethmoid bullae, and hiatus semilunaris. Normal bilateral middle turbinates. Normal bilateral inferior turbinates. Normal midline nasal septum. There is patency of the bilateral nasal airways. The visualized osseous structures are normal. The visualized bilateral orbital contents are normal. CT/Sinus/Facial Bone IMPRESSION: Normal CT examination of the maxillofacial sinuses. Electronically Signed: Alfonzo Roberts DO at 11:42 EDT Tel , Service support ,
== END ==
PROVIDERS: Family Provider Family Medicine; PCP Family Medicine; Referring Provider Otolaryngology Otolaryngology/Facial Plastic Surgery; Visit Provider Otolaryngology Otolaryngology/Facial Plastic Surgery
DX: J32.9 Chronic sinusitis, unspecified (principal)
CPT/HCPCS: 70486

== ENCOUNTER → 2018-09-08 14:31 | Outpatient (CLI) | payer MEDICAID, SELFPAY ==
[2018-08-31 13:41] VITALS: BMI 27.8
[2018-09-08 16:03] LABS: Hematocrit 36.4 % (37-47); Hemoglobin 12.3 g/dL (12.0-15.0); Mean Corp Hgb Conc 33.8 g/dL (32-36); Mean Corpuscular Hgb 31.1 pg (27.0-32.0); Mean Corpuscular Volume 92.2 fL (81-99); Mean Platelet Vol. 11.8 fl (6.2-12.0); Platelet Count 237 K/mm3 (150-450); RBC Distribution Width CV 11.6 % (11.6-14.6); RBC Distribution Width SD 39.5 fl (35.1-43.9); Red Blood Count 3.95 M/mm3 (4.2-5.4); White Blood Count 4.3 K/mm3 (4.4-11.0)
== END ==
PROVIDERS: Nurse Practitioner Family; Family Provider Family Medicine; PCP Family Medicine; Referring Provider Specialist; Visit Provider Specialist
DX: R00.2 Palpitations (principal); R06.02 Shortness of breath; R42 Dizziness and giddiness
CPT/HCPCS: 85027

== ENCOUNTER → 2018-09-29 10:54 | Outpatient (CLI) | payer MEDICAID, SELFPAY ==
[2018-08-31 13:41] VITALS: BMI 27.8
--- NOTE | 2018-09-29 10:56 | ECHOD_ITS ---
Reason For Study: CHEST PAIN Procedure This was a 2D Doppler, Color Flow transthoracic echocardiogram. Exam performed in department. Left Ventricle Normal size and thickness. The estimated ejection fraction is 55 %. No evidence for diastolic dysfunction. No regional wall motion abnormalities noted. Right Ventricle Normal RV size. Normal systolic function. Atria Normal left atrium. Normal right atrium. No doppler evidence for ASD. Mitral Valve There is no mitral valve stenosis. No mitral valve insufficiency. Tricuspid Valve There is no tricuspid stenosis. Unable to estimate RV systolic pressure due to insufficient tricuspid regurgitant envelope. Trivial tricuspid valve insufficiency. Aortic Valve Trisinus/trileaflet aortic valve. There is no aortic stenosis. No aortic valve insufficiency. Pulmonic Valve There is no pulmonic valvular stenosis. No pulmonic valve insufficiency. Great Vessels Normal aortic root. Pericardium/Pleural No pericardial effusion. MMode/2D Measurements & Calculations LVIDd: 5.1 cm IVSd: 0.76 cm Ao root diam: 2.3 cm LVIDs: 3.3 cm LVPWd: 0.77 cm FS: 35.6 % LAV(MOD-bp): 46.1 ml LA A4 area: 16.4 cm2 LA dimension(2D): 2.8 cm LAV(MOD-bp) Indexed: 24.4 ml/m2 LAV(MOD-sp2): 47.4 ml LAV(MOD-sp4): 40.4 ml RA A4 area: 10.9 cm2 Time Measurements MV dec time: 0.18 sec Doppler Measurements & Calculations MV E max yash: 128.2 cm/sec Lat Peak E' Yash: 20.6 cm/sec Med Peak E' Yash: 13.2 cm/sec MV A max yash: 46.2 cm/sec E/E' lat: 6.2 E/E' med: 9.7 MV E/A: 2.8 Ao V2 max: 152.2 cm/sec LV V1 max: 128.9 cm/sec PA V2 max: 134.0 cm/sec Ao max P.3 mmHg LV V1 max P.7 mmHg TR max yash: 189.0 cm/sec TR max P.3 mmHg Interpretation Summary The estimated ejection fraction is 55 %. No evidence for diastolic dysfunction. Ordering Physician: Carina Gaines Referring Physician: RAF BLUNT Performed By: Hilda Hopkins, REMI, RVT
--- NOTE | 2018-09-29 16:17 | STRESSREP_ITS ---
Stress Test Report Date: September 29, 2018 Procedure: Exercise tolerance test Indications: Chest pain Consent: Per the patient Procedure: The patient exercised on a Lenny protocol for 9 minutes achieving a peak heart rate of 179 bpm (89 % predicted maximal heart rate) with a peak blood pressure 146/58 mmHg and a peak MET capacity of approximately 10.4 mET's. The baseline ECG demonstrated normal sinus rhythm. The peak exercise ECG demonstrated sinus tachycardia with no significant ischemic changes. [There were no cardiac dysrhythmias pretest, during exercise, or recovery]. The functional capacity was considered average for age. The patient had no complaint of chest discomfort during exercise or recovery. The examination was discontinued secondary to dyspnea. Impression: 1. Technically adequate (percent predicted maximal heart rate greater than 85%) exercise tolerance test 2. Stress test was negative for exercise-induced chest pain or EKG changes of ischemia. Functional capacity was average for age 3. [There were no cardiac dysrhythmias during exercise or recovery] This note was generated with [employer] Second Ticketsation software. It may contain incorrect words, spelling, and punctuation that were not noted in checking the note before signing.
== END ==
PROVIDERS: Family Provider Family Medicine; PCP Family Medicine; Referring Provider Specialist; Visit Provider Specialist
DX: R07.9 Chest pain, unspecified (principal)
CPT/HCPCS: 93017; 93306

== ENCOUNTER 2019-03-15 11:41 | Emergency (ER) | payer MEDICAID, SELFPAY ==
[2019-02-28 15:32] VITALS: BMI 27.8
[2019-03-15 11:42] VITALS: BP 115/66; PULSE 67; RESP 18; TEMP 36.6; O2SAT 100; BMI 29.1
--- NOTE | 2019-03-15 11:59 | RAD_ITS ---
STUDY: X-RAY CHEST REASON FOR EXAM: Female, 23 years old. HEART PALPITATIONS. TECHNIQUE: Single AP portable view of the chest. COMPARISON: None. FINDINGS: The lungs are clear and expanded. There is no demonstrated pleural abnormality. Normal size heart. Normal mediastinum and fe. Normal visualized pulmonary arteries. Normal visualized aortic arch and descending thoracic aorta. Normal visualized thoracic spine. Normal visualized ribs, clavicles, and shoulders. There is no demonstrated abnormality of the visualized soft tissue structures of the upper abdomen. RAD/Chest 1 View (Portable) IMPRESSION: Normal x-ray examination of the chest. Electronically Signed: Rudy Carvalho, at 12:24 EST , Service support ,
--- NOTE | 2019-03-15 11:59 | EKG12_ITS ---
Test Reason : PALPITATIONS Blood Pressure : / mmHG Vent. Rate : 060 BPM Atrial Rate : 060 BPM P-R Int : 146 ms QRS Dur : 088 ms QT Int : 400 ms P-R-T Axes : 036 062 040 degrees QTc Int : 400 ms Sinus rhythm with Premature atrial complexes Otherwise normal ECG Confirmed by TAYLOR BROOKS, DARIUSZ ([id number]), visual effects editor NANCI DOWNING ([id number]) on 03/17/2019 1:13:07 PM Referred By: JOSELUIS Confirmed By:OMER VAZQUEZ MD
[2019-03-15 12:42] LABS: Absolute Lymphocyte Count 1.42 X10^3/uL (0.83-4.51); Absolute Neutrophil Count 2.3 X10^3/uL (2.0-7.7); Basophil# 0.01 X10^3/uL; Basophil% 0.2 % (0-1); Eosinophil# 0.09 X10^3/uL; Eosinophils% 2.1 % (0-5); Hemoglobin 12.2 g/dL (12.0-15.0); Lymphocyte # 1.42 X10^3/ul (4.0); Lymphocyte % 33.8 % (19-41); Mean Corp Hgb Conc 33.9 g/dL (32-36); Mean Corpuscular Hgb 30.9 pg (27.0-32.0); Mean Corpuscular Volume 91.1 fL (81-99); Monocyte# 0.41 X10^3/uL; Monocyte% 9.8 % (0-10); NRBC Flagged by Analyzer 0 % (0-5); Neutrophil # 2.25 X10^3/uL (2.7-7.7); Neutrophil % 53.6 % (47-70); Platelet Count 236 K/mm3 (150-450); RBC Distribution Width CV 11.4 % (11.6-14.6); RBC Distribution Width SD 38.5 fl (35.1-43.9); Red Blood Count 3.95 M/mm3 (4.2-5.4); White Blood Count 4.2 K/mm3 (4.4-11.0)
[2019-03-15] MEDS: 0.9% Normal Saline 1,000 ML 150 ML IV (12:55)
[2019-03-15 13:05] LABS: Anion Gap 4 (5-15); BUN 19 mg/dL (7-18); BUN/Creat Ratio 23.5 RATIO (10-20); Calcium,Total 9.7 mg/dL (8.5-10.1); Chloride 108 mmol/L (98-107); Creatinine, Serum 0.81 mg/dL (0.55-1.02); EST Glomerular Filtration Rate 94 mL/min (>60); Est Glom Filt Rate - Afr Amer 114 mL/min (>60); Estimated Creatinine Clearance 106.84 ml/min; Glucose 85 mg/dL (74-106); Potassium 3.8 mmol/L (3.5-5.1); Sodium Level 140 mmol/L (136-145); Thyroid Stim Hormone (TSH) 3.64 uIU/mL (0.358-3.74)
[2019-03-15 13:16] LABS: Internal QC Validated? YES +Cl - CLEAR BKGD; Pregnancy, Serum, hCG Quali. NEGATIVE Negative
[2019-03-15 13:29] VITALS: BP 112/96; BP 114/61; BP 117/77; PULSE 52; PULSE 56; PULSE 61
--- NOTE | 2019-03-15 13:45 | ED.DCSUM_ITS ---
- ER Visit Summary Date of Service: 03/15/19 Chief Complaint: [Palpitations] History of Present Illness: The patient is a 23 F [presents to the emergency department complaint of palpitations over the last 2 weeks. Patient states that she normally has palpitations around the time of her menstrual period. Patient states that oftentimes she will feel the sensations and it takes her breath away. Patient states she gets very anxious with it because she does suffer from panic attacks and she is also bipolar. Patient states that she feels often very shaky when this happens. Patient today states that she felt like it was hard to even stand to do the dishes in the kitchen. Patient does complain of a mild sore throat. She has had subjective fever at home. Denies any chest pain. She has had no syncope.] Physical Examination: [HEENT-PERRLA, EOMI. Cranial nerves II through XII grossly intact. TMs clear. Mucous membranes moist. No adenopathy. Cardiovascular-regular rate and rhythm without murmur or ectopy Lungs-clear to auscultation, chest wall stable without crepitus or subcu emphysema Abdomen-normoactive bowel sounds, soft, nontender, no rebound or rigidity, no peritoneal signs. Extremities-intact ?4, normal range of motion, normal pulses, atraumatic] Test Results: [EKG obtained on arrival shows sinus rhythm with a ventricular rate of 60 bpm with occasional PACs. CBC with it was unremarkable. Chemistries unremarkable. Troponin less than 0.015. D-dimer was normal at 0.3. TSH was normal at 3.64.] Orthostatic vital signs were negative. Emergency Department Course and Treatment: [] Treatment Plan: [She will be given a prescription for Ativan as needed anxiety. I offered to place a Holter monitor on the patient however she is declining at this time and states she will follow-up with her primary care physician to have this done.] Disposition: [Discharged home in stable condition] Impression: [Palpitations Anxiety] This note was generated with [employer] dictation software. It may contain incorrect words, spelling, and punctuation that were not noted in review of the chart prior to signing ED Disposition - Plan for ED Patient: Referrals: Bakari Garcia MD [Primary Care Provider] -
--- NOTE | 2019-03-15 13:48 | ED.DEP ---
ED Disposition - Plan for ED Patient: Instructions: Palpitations, Panic Attack Prescriptions: Lorazepam [Ativan] 1 mg PO TID PRN PRN #10 tablet PRN Reason: Anxiety Transmission Status: Sent to [id number] Referrals: Bakari Garcia MD [Primary Care Provider] - 3-5 Days
[2019-03-15 14:07] VITALS: BP 112/96; PULSE 61; RESP 18
== END 2019-03-15 14:09 | disposition home or self-care (01) ==
LOC: ED 12:03
PROVIDERS: Emergency Provider Emergency Medicine; PCP Internal Medicine
DX: R00.2 Palpitations (principal); F41.9 Anxiety disorder, unspecified; J02.9 Acute pharyngitis, unspecified
CPT/HCPCS: 71045; 80048; 84443; 84484; 84703; 85025; 85379; 93005; 96360; 96361; 99285; A4216

== ENCOUNTER 2019-04-05 23:27 | Emergency (ER) | payer MEDICAID, SELFPAY ==
[2019-04-05 23:28] VITALS: BP 120/74; PULSE 95; RESP 15; TEMP 36.8; O2SAT 99; BMI 30.4
[2019-04-06 00:40] LABS: Bacteria 0 SEEN /hpf (None Seen); Mucous, Urine 0 SEEN /hpf (<or=2+); White Blood Cells 0 SEEN /hpf (0-5)
[2019-04-06 00:41] LABS: Absolute Lymphocyte Count 1.36 X10^3/uL (0.83-4.51); Absolute Neutrophil Count 4.4 X10^3/uL (2.0-7.7); Basophil# 0.02 X10^3/uL; Basophil% 0.3 % (0-1); Eosinophil# 0.09 X10^3/uL; Eosinophils% 1.4 % (0-5); Hematocrit 36.2 % (37-47); Hemoglobin 12.1 g/dL (12.0-15.0); Lymphocyte # 1.36 X10^3/ul (4.0); Lymphocyte % 21.4 % (19-41); Mean Corp Hgb Conc 33.4 g/dL (32-36); Mean Corpuscular Hgb 30.7 pg (27.0-32.0); Mean Corpuscular Volume 91.9 fL (81-99); Mean Platelet Vol. 11.4 fl (6.2-12.0); Monocyte% 7.9 % (0-10); NRBC Flagged by Analyzer 0 % (0-5); Neutrophil # 4.36 X10^3/uL (2.7-7.7); Neutrophil % 68.7 % (47-70); Platelet Count 241 K/mm3 (150-450); RBC Distribution Width SD 40.2 fl (35.1-43.9); Red Blood Count 3.94 M/mm3 (4.2-5.4); White Blood Count 6.4 K/mm3 (4.4-11.0)
[2019-04-06 00:42] LABS: Color, Urine Yellow (Yellow); Glucose, Dipstick Normal (Normal); Ketone-Dipstick Negative (Negative); Leukocyte Esterase-Dipstick Negative /ul (Negative); Nitrite-Dipstick Negative (Negative); Occult Blood-Urine Negative /ul (Negative); Protein-Dipstick Negative (Negative); Specific Gravity, Urine 1.015 (1.002-1.030); Urine Bilirubin Dipstick Negative (Negative); Urine Clarity Clear (Clear); Urine Urobilinogen Normal (Normal)
[2019-04-06 00:48] LABS: Red Blood Cells-Urine 0-5 SEEN /hpf (0-5); Squamous Epithelial Cells - UA 0-5 SEEN /hpf (5-10)
[2019-04-06 00:54] LABS: Anion Gap 5 (5-15); BUN 14 mg/dL (7-18); BUN/Creat Ratio 18.3 RATIO (10-20); Calcium,Total 9.1 mg/dL (8.5-10.1); Chloride 108 mmol/L (98-107); Creatinine, Serum 0.76 mg/dL (0.55-1.02); EST Glomerular Filtration Rate 101 mL/min (>60); Est Glom Filt Rate - Afr Amer 122 mL/min (>60); Estimated Creatinine Clearance 113.87 ml/min; Glucose 88 mg/dL (74-106); Potassium 3.7 mmol/L (3.5-5.1); Sodium Level 139 mmol/L (136-145)
[2019-04-06 00:59] LABS: hCG Titer Quant., Serum 209 mIU/mL (1-3)
--- NOTE | 2019-04-06 01:23 | ED.DCSUM_ITS ---
History of Present Illness Chief Complaint: Vag Bld, Preg Informant: Patient Onset: Today Narrative: Patient presents with positive home test and spotting. She states her last menstrual cycle was March 06. She started having some spotting and cramping tonight and took a home test that was positive. 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 Denies: Vomiting Genitourinary: Denies: Dysuria Musculoskeletal: Denies: Extremity Pain Skin: Denies: Rash Neurological: Denies: Headache Psych: Reports: Anxiety Physical Exam Vital Signs/Narrative: Vital Signs Temp Pulse Resp BP Pulse Ox 04/05/19 23:28 98.3 F 95 15 120/74 99 Inital Vital Signs reviewed: Yes General: Well nourished, Well developed Head: Normocephalic ENT: Moist mucous membranes Neck: Supple Cardiovascular: Regular rate, Regular rhythm Respiratory: No distress, CTA bilaterally Abdomen: Soft, Tender - Mild suprapubic tenderness. Extremities: Nontender Skin: Normal color Neurological: Alert, Oriented x3 Psychological: - - Anxious Diagnostic/Tx/Re-eval Laboratory Results 04/06/19 04/06/19 04/06/19 00:20 00:20 00:20 WBC 6.4 RBC 3.94 L Hgb 12.1 Hct 36.2 L MCV 91.9 MCH 30.7 MCHC 33.4 RDW Std Deviation 40.2 RDW Coeff of Caty 12.0 Plt Count 241 MPV 11.4 Immature Gran % (Auto) 0.300 Neut % (Auto) 68.7 Lymph % (Auto) 21.4 Humphreys % (Auto) 7.9 Eos % (Auto) 1.4 Baso % (Auto) 0.3 Absolute Neuts (auto) 4.4 Absolute Lymphs (auto) 1.36 Nucleated RBC % 0 Sodium 139 Potassium 3.7 Chloride 108 H Carbon Dioxide 26.0 Anion Gap 5 BUN 14 Creatinine 0.76 Estim Creat Clear Calc 113.87 Est GFR (MDRD) Af Amer 122 Est GFR (MDRD) Non-Af 101 BUN/Creatinine Ratio 18.3 Glucose 88 Calcium 9.1 HCG, Quant 209 H Urine Color Urine Clarity Urine pH Ur Specific [place] Urine Protein Urine Glucose (UA) Urine Ketones Urine Occult Blood Urine Nitrite Urine Bilirubin Urine Urobilinogen Ur Leukocyte Esterase Urine RBC Urine WBC Ur Squamous Epith Cells Urine Bacteria Urine Mucus 04/06/19 00:38 WBC RBC Hgb Hct MCV MCH MCHC RDW Std Deviation RDW Coeff of Caty Plt Count MPV Immature Gran % (Auto) Neut % (Auto) Lymph % (Auto) Humphreys % (Auto) Eos % (Auto) Baso % (Auto) Absolute Neuts (auto) Absolute Lymphs (auto) Nucleated RBC % Sodium Potassium Chloride Carbon Dioxide Anion Gap BUN Creatinine Estim Creat Clear Calc Est GFR (MDRD) Af Amer Est GFR (MDRD) Non-Af BUN/Creatinine Ratio Glucose Calcium HCG, Quant Urine Color Yellow Urine Clarity Clear Urine pH 6.0 Ur Specific [place] 1.015 Urine Protein Negative Urine Glucose (UA) Normal Urine Ketones Negative Urine Occult Blood Negative Urine Nitrite Negative Urine Bilirubin Negative Urine Urobilinogen Normal Ur Leukocyte Esterase Negative Urine RBC 0-5 SEEN Urine WBC 0 SEEN Ur Squamous Epith Cells 0-5 SEEN Urine Bacteria 0 SEEN Urine Mucus 0 SEEN - Medical Decision Making Test results discussed with the patient. At this time based on her quant she would only be 1 to 3 weeks . On repeat evaluation patient is still anxious. She states that she is interested in terminating the and is very adamant about this. I encouraged her to call her DATA WAREHOUSING MANAGER in the morning. I will call in the morning and let them know about her case and that she will be calling for follow-up. ED Disposition - Plan for ED Patient: Disposition: Home or Assisted Living Diagnosis: Threatened miscarriage Instructions: POSSIBLE MISCARRIAGE (Threatened ) Referrals: Shelley Tabares DO [STAFF PHYSICIAN] - As soon as possible
[2019-04-06 01:38] VITALS: BP 108/72; PULSE 84; RESP 18; O2SAT 100
== END 2019-04-06 01:39 | disposition home or self-care (01) ==
PROVIDERS: Emergency Provider Emergency Medicine; PCP Internal Medicine
DX: O20.0 Threatened abortion (principal); K21.9 Gastro-esophageal reflux disease without esophagitis; F43.10 Post-traumatic stress disorder, unspecified; Z3A.01 Less than 8 weeks gestation of pregnancy
CPT/HCPCS: 80048; 81001; 84702; 85025; 99283; A4216

== ENCOUNTER 2019-04-09 17:04 | Emergency (ER) | payer MEDICAID, SELFPAY ==
[2019-04-09 17:05] VITALS: BP 122/70; PULSE 69; RESP 15; TEMP 37.3; O2SAT 97; BMI 30.2
--- NOTE | 2019-04-09 17:39 | US_ITS ---
STUDY: FIRST TRIMESTER OBSTETRICAL ULTRASOUND REASON FOR EXAM: Female, 23 years old. Right lower quadrant pain. Positive test. LMP: 03/06/2019 TECHNIQUE: Transvaginal PRIOR ULTRASOUND: None. FINDINGS: There is no demonstrated intrauterine gestational sac. There is no demonstrated yolk sac. There is no demonstrated embryo ( pole). The uterus measures 8.5 x 6.0 x 4.8 cm. The endometrium measures 18 mm.. There is no demonstrated uterine fibroid. The cervix is closed. The right ovary measures 3.0 x 1.7 x 1.5 cm. There is no right ovarian cyst. There is no visualized right adnexal mass or complex lesion. The left ovary measures 4.1 x 3.8 x 1.5 cm. There is a 2.1 x 1.9 cm complex cyst in the left ovary which likely represents a corpus luteum. There is no visualized left adnexal mass or complex lesion. There is a moderate amount of free fluid. US/Transvaginal w/Preg US IMPRESSION: No intrauterine gestation identified. No adnexal mass identified. Moderate amount of free fluid. These findings may be due to an early intrauterine gestation, a nonvisualized ectopic or a spontaneous . Follow-up sonography and beta hCG levels are recommended. Complex cyst in the left ovary which likely represents a corpus luteum. Electronically Signed: Sheng Tinajero, at 20:03 EST Tel , Service support ,
--- NOTE | 2019-04-09 17:48 | ED.VIS.GEN ---
History of Present Illness Chief Complaint: Abd Pain Informant: Patient Onset: Days Context: Gradual Onset Timing: Waxes and wanes Current Severity: Moderate Maximum Severity: Moderate Narrative: Patient was present emergency room a couple nights ago and found to have a positive test. She was very early in her and was confident that she was going to want to terminate her . Patient returns today stating that she has had waxing and waning right lower quadrant pain and today developed right shoulder pain. She is concerned for possible ectopic . She has not yet seen INTERNAL AFFAIRS COMMANDER and is now not sure that she wants to terminate the . - Past Medical History (1) Anxiety Status: Chronic (2) PTSD (post-traumatic stress disorder) Status: Chronic (3) GERD (gastroesophageal reflux disease) Status: Chronic Past Medical History - Allergies and Home Meds Allergies/Adverse Reactions: Allergies No Known Allergies Allergy (Verified 04/05/19 23:28) Primary Care Physician: Shelley Tabares DO [STAFF PHYSICIAN] - Doctors: [facility] INTERNAL AFFAIRS COMMANDER Prior records reviewed: Yes Surgical History: noncontributory Lives: Spouse/ Significant Other Smoking Status: Never smoker Review of Systems General: Denies: Chills, Fever Eyes: Denies: Visual changes - bilaterally ENT: Denies: Bilateral ear pain Cardiovascular: Denies: Chest pain Respiratory: Denies: Dyspnea Gastrointestinal: Reports: Abdominal pain, Diarrhea. Denies: Vomiting Genitourinary: Denies: Dysuria Musculoskeletal: Reports: Extremity Pain - Pain to right shoulder, currently resolved Skin: Denies: Rash Neurological: Denies: Headache Allergy: Denies: Uticaria Physical Exam Vital Signs/Narrative: Vital Signs Temp Pulse Resp BP Pulse Ox 04/09/19 17:05 99.2 F H 69 15 122/70 H 97 Inital Vital Signs reviewed: Yes General: Well nourished, Well developed Head: Normocephalic ENT: Moist mucous membranes Neck: Supple Cardiovascular: Regular rate, Regular rhythm Respiratory: No distress, CTA bilaterally Abdomen: Soft, Tender - Mild tenderness in the right lower quadrant.. Negative for: Guarding, Rebound tenderness Extremities: Nontender Skin: Normal color Neurological: Alert, Oriented x3 Psychological: Normal affect Diagnostic/Tx/Re-eval Impressions Obstetrics Ultrasound 04/09/19 17:39 IMPRESSION: No intrauterine gestation identified. No adnexal mass identified. Moderate amount of free fluid. These findings may be due to an early intrauterine gestation, a nonvisualized ectopic or a spontaneous . Follow-up sonography and beta hCG levels are recommended. Complex cyst in the left ovary which likely represents a corpus luteum. Electronically Signed: Sheng Tinajero, at 20:03 EST Tel , Service support , 04/09/19 17:39 Transvaginal w/Preg US [US] Stat Laboratory Results 04/09/19 04/09/19 04/09/19 17:31 17:31 17:31 WBC 5.5 RBC 4.00 L Hgb 12.1 Hct 36.6 L MCV 91.5 MCH 30.3 MCHC 33.1 RDW Std Deviation 40.3 RDW Coeff of Caty 12.0 Plt Count 267 MPV 11.2 Immature Gran % (Auto) 0.500 Neut % (Auto) 61.4 Lymph % (Auto) 28.2 [place] % (Auto) 8.2 Eos % (Auto) 1.3 Baso % (Auto) 0.4 Absolute Neuts (auto) 3.4 Absolute Lymphs (auto) 1.55 Nucleated RBC % 0.4 Sodium 139 Potassium 3.8 Chloride 108 H Carbon Dioxide 28.0 Anion Gap 3 L BUN 13 Creatinine 0.74 Estim Creat Clear Calc 116.95 Est GFR (MDRD) Af Amer 126 Est GFR (MDRD) Non-Af 104 BUN/Creatinine Ratio 17.5 Glucose 70 L Calcium 9.0 HCG, Quant 1091 H Urine Color Urine Clarity Urine pH Ur Specific [place] Urine Protein Urine Glucose (UA) Urine Ketones Urine Occult Blood Urine Nitrite Urine Bilirubin Urine Urobilinogen Ur Leukocyte Esterase Urine RBC Urine WBC Ur Squamous Epith Cells Urine Bacteria Urine Mucus Blood Type 04/09/19 04/09/19 04/09/19 17:46 17:46 17:50 WBC RBC Hgb Hct MCV MCH MCHC RDW Std Deviation RDW Coeff of Caty Plt Count MPV Immature Gran % (Auto) Neut % (Auto) Lymph % (Auto) [place] % (Auto) Eos % (Auto) Baso % (Auto) Absolute Neuts (auto) Absolute Lymphs (auto) Nucleated RBC % Sodium Potassium Chloride Carbon Dioxide Anion Gap BUN Creatinine Estim Creat Clear Calc Est GFR (MDRD) Af Amer Est GFR (MDRD) Non-Af BUN/Creatinine Ratio Glucose Calcium HCG, Quant Urine Color Yellow Urine Clarity Sl. Cloudy Urine pH 8.0 Ur Specific [place] 1.010 Urine Protein Negative Urine Glucose (UA) Normal Urine Ketones Negative Urine Occult Blood Negative Urine Nitrite Negative Urine Bilirubin Negative Urine Urobilinogen Normal Ur Leukocyte Esterase Negative Urine RBC 0 SEEN Urine WBC 0 SEEN Ur Squamous Epith Cells 0-5 SEEN Urine Bacteria 0 SEEN Urine Mucus 0 SEEN Blood Type Not Reportable A POSITIVE - Medical Decision Making Test results were discussed with Dr. Tabares, on-call for INTERNAL AFFAIRS COMMANDER. She stated that the office would call the patient tomorrow. They will have the patient repeat her lab work on Wednesday and they want to see her in the office this week. She will have a repeat ultrasound performed next week. If the patient does not hear from the office by 2 PM tomorrow afternoon she is to call them to check on her orders. If symptoms worsen patient is to return to the emergency room. ED Disposition - Plan for ED Patient: Disposition: Home or Assisted Living Diagnosis: Pelvic pain, Instructions: ABDOMINAL PAIN, Early , PELVIC PAIN, Unknown Cause Referrals: Shelley Tabares DO [STAFF PHYSICIAN] - Additional Instructions: ObGyn will call you tomorrow with follow-up tests and appointments. If you do not hear from them by 2pm, please call the office.
[2019-04-09 17:54] LABS: Absolute Lymphocyte Count 1.55 X10^3/uL (0.83-4.51); Absolute Neutrophil Count 3.4 X10^3/uL (2.0-7.7); Basophil# 0.02 X10^3/uL; Basophil% 0.4 % (0-1); Eosinophil# 0.07 X10^3/uL; Eosinophils% 1.3 % (0-5); Hematocrit 36.6 % (37-47); Hemoglobin 12.1 g/dL (12.0-15.0); Lymphocyte # 1.55 X10^3/ul (4.0); Lymphocyte % 28.2 % (19-41); Mean Corp Hgb Conc 33.1 g/dL (32-36); Mean Corpuscular Hgb 30.3 pg (27.0-32.0); Mean Corpuscular Volume 91.5 fL (81-99); Mean Platelet Vol. 11.2 fl (6.2-12.0); Monocyte# 0.45 X10^3/uL; Monocyte% 8.2 % (0-10); NRBC Flagged by Analyzer 0.4 % (0-5); Neutrophil # 3.38 X10^3/uL (2.7-7.7); Neutrophil % 61.4 % (47-70); Platelet Count 267 K/mm3 (150-450); RBC Distribution Width SD 40.3 fl (35.1-43.9); White Blood Count 5.5 K/mm3 (4.4-11.0)
[2019-04-09 17:59] LABS: Bacteria 0 SEEN /hpf (None Seen); Color, Urine Yellow (Yellow); Glucose, Dipstick Normal (Normal); Ketone-Dipstick Negative (Negative); Leukocyte Esterase-Dipstick Negative /ul (Negative); Mucous, Urine 0 SEEN /hpf (<or=2+); Nitrite-Dipstick Negative (Negative); Occult Blood-Urine Negative /ul (Negative); Protein-Dipstick Negative (Negative); Red Blood Cells-Urine 0 SEEN /hpf (0-5); Urine Bilirubin Dipstick Negative (Negative); Urine Clarity Sl. Cloudy (Clear); Urine Urobilinogen Normal (Normal); White Blood Cells 0 SEEN /hpf (0-5)
[2019-04-09 18:04] LABS: Squamous Epithelial Cells - UA 0-5 SEEN /hpf (5-10)
[2019-04-09 18:04] LABS: Anion Gap 3 (5-15); BUN 13 mg/dL (7-18); BUN/Creat Ratio 17.5 RATIO (10-20); Chloride 108 mmol/L (98-107); Creatinine, Serum 0.74 mg/dL (0.55-1.02); EST Glomerular Filtration Rate 104 mL/min (>60); Est Glom Filt Rate - Afr Amer 126 mL/min (>60); Estimated Creatinine Clearance 116.95 ml/min; Glucose 70 mg/dL (74-106); Potassium 3.8 mmol/L (3.5-5.1); Sodium Level 139 mmol/L (136-145)
[2019-04-09 18:31] LABS: hCG Titer Quant., Serum 1091 mIU/mL (1-3)
[2019-04-09] MEDS: 0.9% Normal Saline 1,000 ML 150 ML IV (18:41)
[2019-04-09 20:59] VITALS: BP 125/72; PULSE 86; RESP 15; O2SAT 98
--- NOTE | 2019-04-16 02:34 | ED.RN ---
pt called in at this time to see if we tested her for STDs test results given at this time
== END 2019-04-09 21:01 | disposition home or self-care (01) ==
PROVIDERS: Emergency Provider Emergency Medicine; PCP Internal Medicine
DX: O26.899 Other specified pregnancy related conditions, unspecified trimester (principal); R10.2 Pelvic and perineal pain; N83.202 Unspecified ovarian cyst, left side; K21.9 Gastro-esophageal reflux disease without esophagitis; O99.340 Other mental disorders complicating pregnancy, unspecified trimester; F43.10 Post-traumatic stress disorder, unspecified; Z3A.00 Weeks of gestation of pregnancy not specified
CPT/HCPCS: 76817; 80048; 81001; 84702; 85025; 86900; 86901; 96360; 96361; 99283; J7030; A4216

== ENCOUNTER → 2019-04-17 16:09 | Outpatient (CLI) | payer MEDICAID, SELFPAY ==
[2019-04-09 17:05] VITALS: BMI 30.2
[2019-04-17 17:59] LABS: hCG Titer Quant., Serum 7292 mIU/mL (1-3)
== END ==
LOC: LABSPEC 16:38 → LAB 04-18 06:50
PROVIDERS: PCP Internal Medicine; Referring Provider Advanced Practice Midwife; Visit Provider Advanced Practice Midwife
DX: O20.0 Threatened abortion (principal); Z3A.00 Weeks of gestation of pregnancy not specified
CPT/HCPCS: 36415; 84702

== ENCOUNTER 2019-04-21 15:32 | Emergency (ER) | payer MEDICAID, SELFPAY ==
[2019-04-21 15:35] VITALS: BP 115/55; PULSE 72; RESP 18; TEMP 36.1; O2SAT 98; BMI 29.7
[2019-04-21 15:56] VITALS: RESP 16
--- NOTE | 2019-04-21 16:06 | US_ITS ---
STUDY: ULTRASOUND OF THE FEMALE PELVIS - COMPLETE REASON FOR EXAM: Female, 24 years old. Status post . Bleeding. TECHNIQUE: Transvaginal TECHNICAL QUALITY: Adequate. COMPARISON: None. FINDINGS: The uterus is anteverted and is in a midline position. The uterus measures 7.4 x 6.2 x 4.5 cm. Normal uterine cervix. The endometrium measures 11 mm in thickness, and is hyperechoic. There is no vascularity within the endometrium. There is no demonstrated endometrial mass. There is no demonstrated myometrial mass. The right ovary is visualized. The right ovary measures 3.4 x 2.5 x 1.8 cm. There is no right ovarian cyst or ovarian mass. There is no visualized right adnexal mass or complex lesion. There is normal arterial and normal venous vascularity. The left ovary is visualized. The left ovary measures 3.8 x 3.1 x 1.7 cm. There is a 1.9 x 1.4 cm cyst in the right ovary. There is no visualized left adnexal mass or complex lesion. There is normal arterial and normal venous vascularity. There is a small to moderate amount of fluid in the cul-de-sac. US/Transvaginal Non- IMPRESSION: Thickened endometrium with no evidence of vascularity. This may represent avascular retained products of conception. 1.9 cm cyst in the left ovary. Small to moderate amount of pelvic free fluid. Electronically Signed: Sheng Tinajero, at 18:37 EST Tel , Service support ,
--- NOTE | 2019-04-21 16:07 | ED.VISSUMM ---
- ER Visit Summary Date of Service: 04/21/19 Chief Complaint: [Pelvic pain and vaginal bleeding] History of Present Illness: The patient is a 24 F [presents to the emergency department with complaint of pain and bleeding after undergoing a D&C/ 3 days ago in [facility]. Patient states that she was told that she would not have much pain afterwards however she is having severe pain. Patient states the pain waxes and wanes. Today she started having more bleeding like menstrual period would be and she has gone through 3 pads today. She is passing some small clots. She is not had any fever although she is had some chills. Patient last menstrual period was April 14. She is G1, P0. Patient otherwise has no medical history.] Physical Examination: [HEENT-PERRLA, EOMI. Cranial nerves II through XII grossly intact. TMs clear. Mucous membranes moist. No adenopathy. Cardiovascular-regular rate and rhythm without murmur or ectopy Lungs-clear to auscultation, chest wall stable without crepitus or subcu emphysema Abdomen-normoactive bowel sounds, soft. Patient has tenderness diffusely over the suprapubic region. There is mild guarding. There is no rebound, rigidity, or peritoneal signs. Extremities-intact ?4, normal range of motion, normal pulses, atraumatic] Test Results: [CBC with differential obtained showing a 3.9, hemoglobin 11.8, hematocrit 35, placed 248. Quantitative hCG was 1167. Pelvic ultrasound obtained showed an 11 mm endometrial stripe and could not rule out a vascular pain products. Patient also had small amount of pelvic free fluid.] Emergency Department Course and Treatment: [Case discussed with COURT SECURITY OFFICER on-call Dr. Bowles. Patient was seen in the ER by Dr. Bowles. Patient is feeling improved and has minimal pain at this time. Patient will be given a prescription for few Percocet for severe pain. She will follow-up with COURT SECURITY OFFICER next week.] Treatment Plan: [Follow-up with COURT SECURITY OFFICER. Patient advised to return if persistent heavy bleeding, worsening pain, fever, or conditions worsen anyway.] Disposition: [Discharged home in stable condition] Impression: [Pelvic pain status post D&C Vaginal bleeding status post D&C.] This note was generated with [employer] software. It may contain incorrect words, spelling, and punctuation that were not noted in review of the chart prior to signing ED Disposition - Plan for ED Patient: Referrals: Bakari Garcia MD [Primary Care Provider] -
[2019-04-21] MEDS: 0.9% Normal Saline 1,000 ML 1000 ML IV (16:31)
[2019-04-21 16:43] LABS: Absolute Lymphocyte Count 1.28 X10^3/uL (0.83-4.51); Absolute Neutrophil Count 2.2 X10^3/uL (2.0-7.7); Basophil# 0.01 X10^3/uL; Basophil% 0.3 % (0-1); Eosinophil# 0.09 X10^3/uL; Eosinophils% 2.3 % (0-5); Hematocrit 34.6 % (37-47); Hemoglobin 11.8 g/dL (12.0-15.0); Lymphocyte # 1.28 X10^3/ul (4.0); Lymphocyte % 32.9 % (19-41); Mean Corp Hgb Conc 34.1 g/dL (32-36); Mean Corpuscular Hgb 31.2 pg (27.0-32.0); Mean Corpuscular Volume 91.5 fL (81-99); Mean Platelet Vol. 11.2 fl (6.2-12.0); Monocyte# 0.29 X10^3/uL; Monocyte% 7.5 % (0-10); NRBC Flagged by Analyzer 0 % (0-5); Neutrophil # 2.22 X10^3/uL (2.7-7.7); Platelet Count 248 K/mm3 (150-450); RBC Distribution Width CV 11.9 % (11.6-14.6); RBC Distribution Width SD 40.4 fl (35.1-43.9); Red Blood Count 3.78 M/mm3 (4.2-5.4); White Blood Count 3.9 K/mm3 (4.4-11.0)
[2019-04-21 16:52] VITALS: BP 120/73; BP 121/78; PULSE 66; PULSE 70
[2019-04-21 17:58] LABS: hCG Titer Quant., Serum 1167 mIU/mL (1-3)
[2019-04-21 18:00] VITALS: RESP 16
--- NOTE | 2019-04-21 19:49 | PCM.HP.STD ---
History of Present Illness Date of Admission: 04/21/19 The patient is a 24 year old who presented to the ED 3 days s/p surgical termination. She reports intermittent waves of pain. She has had some vaginal bleeding that was bright red and it made her anxious. Patient presented to the ED as she didn't expect to feel like this. Currently her pain is minimal. Patient does admit to some anxiety over the experience. Past Medical History Past Medical History (Chronic Problems): Chronic Problems (Last Reviewed 02/28/19 @ 13:56 by Isis Brewster) Anxiety (Chronic) PTSD (post-traumatic stress disorder) (Chronic) GERD (gastroesophageal reflux disease) (Chronic) Medical History: Medical History (Last Reviewed 02/28/19 @ 13:56 by Isis Brewster) Shortness of breath (Acute) R06.02 Chest pain (Acute) R07.9 Depression with anxiety F41.8 CIRO (generalized anxiety disorder) F41.1 GERD (gastroesophageal reflux disease) K21.9 PTSD (post-traumatic stress disorder) F43.10 Vitamin D deficiency E55.9 Mild tetrahydrocannabinol (THC) abuse F12.10 Allergies No Known Allergies Allergy (Verified 04/21/19 15:34) Surgical History: noncontributory IT 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 CONSULTING DIRECTOR History: therapeutic Lives: Spouse/ Significant Other Smoking Status: Never smoker Review of Systems Constitutional: Denies: Chills, Fever, Weight Change Cardiovascular: Denies: Chest Pain, Palpitations Respiratory: Denies: Cough, Shortness of breath at rest, Sputum production Gastrointestinal: Denies: Abdominal Pain, Nausea, Vomiting VTE Information - Inpt Only VTE Present on Admission: No - Physical Exam Vitals/I&O's: Vital Signs Temp Pulse Resp BP Pulse Ox 96.9 F L 66 16 120/73 98 04/21/19 15:35 04/21/19 16:52 04/21/19 18:00 04/21/19 16:52 04/21/19 15:35 Oxygen Delivery Method Room Air Weight: 190 lb Body Mass Index (BMI) 29.7 Intake and Output for Last 24 Hours 04/19/19 04/20/19 04/21/19 23:59 23:59 23:59 Intake Total 1000 / 1000 Balance 1000 / 1000 General: Alert, Oriented x3 Abdomen: Soft, Non Tender, Non-Distended Extremities: No Calf Tenderness Neurological: Cranial nerves II-XII grossly intact Laboratory Results 04/21/19 16:29: WBC 3.9 L, RBC 3.78 L, Hgb 11.8 L, Hct 34.6 L, MCV 91.5, MCH 31.2, MCHC 34.1, RDW Std Deviation 40.4, RDW Coeff of Caty 11.9, Plt Count 248, MPV 11.2, Immature Gran % (Auto) 0.000, Neut % (Auto) 57.0, Lymph % (Auto) 32.9, [place] % (Auto) 7.5, Eos % (Auto) 2.3, Baso % (Auto) 0.3, Absolute Neuts (auto) 2.2, Absolute Lymphs (auto) 1.28, Nucleated RBC % 0 04/21/19 16:29: HCG, Quant 1167 H 04/21/19 16:29: Blood Type A POSITIVE Assessment/Plan All Active Problems (Last Reviewed 02/28/19 @ 13:56 by Isis Brewster) Shortness of breath (Acute) Chest pain (Acute) Abdominal pain (Resolved) 24yo female s/o surgical 3 days ago Patient with benign physical exam, normal US (endometrial stripe of 11mm) and labs (CBC & decreasing hcg quant) . Patient reassured. Reviewed precautions for vaginal bleeding and pain. She will be discharged home & f/u next week.
--- NOTE | 2019-04-21 19:55 | ED.DEP ---
ED Disposition - Plan for ED Patient: Instructions: PELVIC PAIN, Unknown Cause Prescriptions: Oxycodone HCl/Acetaminophen [Percocet 5/325] 1 tab PO Q6H PRN PRN 3 Days #7 tab PRN Reason: Pain Prescription Printed Referrals: Bakari Garcia MD [Primary Care Provider] - Ivon Bowles [STAFF PHYSICIAN] - 3-5 Days
[2019-04-21 20:03] VITALS: RESP 16
== END 2019-04-21 20:03 | disposition home or self-care (01) ==
LOC: ED 16:08
PROVIDERS: Emergency Provider Emergency Medicine; PCP Internal Medicine
DX: R10.2 Pelvic and perineal pain (principal); N93.9 Abnormal uterine and vaginal bleeding, unspecified; F43.10 Post-traumatic stress disorder, unspecified; F41.8 Other specified anxiety disorders; K21.9 Gastro-esophageal reflux disease without esophagitis
CPT/HCPCS: 76830; 84702; 85025; 86900; 86901; 96360; 99284; J7030

== ENCOUNTER 2019-06-21 09:00 | Outpatient (RCR) | payer MEDICAID, SELFPAY ==
[2019-06-14 10:10] VITALS: BMI 29.7
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
--- NOTE | 2019-06-21 09:54 | BH.NA_ITS ---
Physical Data - Vital Signs Pulse Rate: 56 Blood Pressure: 100/60 - Height/Weight Height: 1.7 m Weight:: 77.111 kg - stated weight Weight in Pounds: 170.0 lbs Nutritional History - Appetite Nutritional Instructions:: If client shows signs of a swallowing problem, weight change of 10 pounds or more in the last month, or is on a diabetic diet, the physician will review and request a dietitian consult, as appropriate. All unintentional weight loss will be referred to the physician for decision on need for dietitian consult. Describe your appetite:: Good Have you noticed a change in your eating habits lately?: Yes Additional nutritional information:: recently gained 5-10lbs with increased appetite Functional Assessment - Sleep Pattern Describe any problems with sleeping: Client states she sleeps approximately 12 hours per night. Client states she does have nightmares at times and has been having them since being in the . - Activities Motor Activity:: Functional Sensory/Communication Assess - Communication Problems Do you have difficulty understanding what people are saying?: No What is your primary language?: Sami Medical Problems/History - Cardiac Conditions Cardiovascular: Other (See comments) Comments:: palpitations- client has had cardiac work-up in the past that was negative. Client states she does feel her palpitations are worse with when on h er period. Client states when younger, she did have skipped beats. - Gastrointestinal Conditions Gastrointestinal: Other (See comments) Comments:: GERD - Musculoskeletal Conditions Musculoskeletal: Other (See comments) Comments:: history of hip/femur fracture when in - Female Reproductive Date of last menstrual period:: 06/21/19 Number of pregnancies:: 1 Number of children:: 0 :: 1 - Family History Family History: Family History (Last Reviewed 02/28/19 @ 13:56 by Isis Brewster) Father Diabetes Grandfather Cancer Grandmother Cancer Mother Cancer Fibromyalgia Multiple sclerosis Surgical History - Surgical History Have you had any surgeries? If so, list type and date:: Yes - termination Substance Abuse - Substance Abuse Please describe substance abuse in the last 30 days:: Client states she drinks socially about once a month. Client denies tobacco use. Client states she occasionally uses marijuana, last used once last week. Client denies caffiene use due to her making her palpitations worse. Mental Status Summary - Mental Status Significant Findings/Observations on Appearance and Mood:: Client alert and oriented x 4. Client is casually groomed with good hygiene. Client is cooperative with assessment. Client makes good eye contact, has good attention during assessment. Client's speech rapid at times, but coherent and spontaneous. Client appears moderately depressed during assessment. Client makes logical associations and has normal processing. Client denies delusions/hallucinations. Client denies SI, states I have such a fear of dying I would never think about that anymore. Suicide Assessment - Suicidal Ideation Are you currently or have you been suicidal in the past?: Yes Suicidal Intentional Rating Scale (SIRS): Suicidal thoughts (past) - Client states she has a fear of and has not thought about suicide in a very long time Physician Notification: If Active suicidal thoughts/Will not contract for safety is checked, contact physician and document in the Physician Notification section below. Past Psychiatric History - MH Treatment Hx Past Psychiatric Medications:: Client states celexa has helped her in the past. Client states she was hospitalized with SI and hallucinations after taking Seroquel. Client also states she has taken Lamictal and Effexor in the past and does not like them. Age of first mental health symptoms: Client states a counselor talked about bipolar 2 diagnosis when she was 15, but states this was not official and client does not agree with diagnosis. Client states she feels this was pushed by her mother. Client states she was diagnosed with anxiety in the last year or two after coming out of the . Client states within the last year she was diagnosed with borderline personality and states she believes that to be more true than bipolar. Describe (age, circumstance, etc) any past hospitalizations: Client was hospitalized after being on seroquel in 2018 at [place]. Client states she has 8 previous suicidal near attempts but was not hospitalized. Current providers for mental health treatment (counselor, psychiatrist, correctional counselor/case manager, etc.): None. Fall Risk Assessment - Age Age: Less than 60 - Mental Status Mental Status: Willing & able to ask for assistance when needed - Physical Status Physical Status: No problems - Impairments Impairments: None - Elimination Elimination: Continent AND independent - Gait or Balance Gait or Balance: Walks independently - Hx of Falls History of falls in the past 6 months: No known history - Medications/Substances Medications/substances used within the past 24 hours or ordered to administer: None of the medications/substances list above - Total Score Total Points:: 0 RN Summary of Impressions - Impressions Recommendations: Include psychiatric and medical issues, treatment planning recommendations, and discharge planning needs. Impressions: Psychiatric Issues: ilness anxiety disorder, PTSD, anxiety disorder NOS, depressive disorder NOS - Level of Care How do the client's current symptoms and functional deficits support need for this level of care?: Client was referred to program by her PCP after increased anxiety. Client states she recently has had an increase in her health anxiety and panic attacks. Client states she has a fear of blood clots, brain aneurysm, and heart issues even though she has no health evidence of same. Client states she has intense fear of . Client denies SI, stating her fear of would prevent her from acting out on anything. Client states she has panic attacks at least once a day, stating she has palpitations and SOB with same. Client states she frequently gets heart palpitations and states they are worse when she is menstrating. Client talks about having an a couple of months ago and gets tearful, stating she feels some guilt but she did not feel she could have a child with her mental struggles. Client reports increased irritability, avoidance, isolation and decreased self-esteem. IOP will promote fains and preve nt further decompensation while providing social support and skills training.
[2019-06-21 12:37] VITALS: BP 100/60; PULSE 56
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
--- NOTE | 2019-06-21 13:09 | BH.DR.ITP ---
Initial Treatment Plan - Patient Information Visit Information: ADMISSION DATE: EXPECTED LOS: 4-6 weeks - Problems/Symptoms Problem #1:: Anxiety Symptom:: illness anxiety, panic attacks, worry, isolaton, avoidance Problem #2:: Depression Symptom:: Sadness, fatigue, hopelessness, worthlessness
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
--- NOTE | 2019-06-22 09:06 | BH.SGPN.GN ---
Behaviors/Verbalizations/Mental Status: []Client alert and oriented, casual dress, hygiene tended to. Eye contact good. Motor activity appropriate. Speech within normal limits. Affect congruent, mood anxious and dysthymic. Thoughts linear, logical, no signs of hallucinations or delusions. Reviewed client?s symptom tracker, pt denies current suicidal thoughts or intention to date. Client Response/Progress/Benefit: []Pt first day in IOP program, responded well to session AEB pt sharing thoughts and feelings as well as listening attentively to peers. Pt reported mental health positive as being able to take the initiative to seek treatment for her mental health. Pt identified additional mental health win as making plans to spend time practicing self-care by going for a walk and reaching out to a support person. Pt stated it felt positive to be able to make time for her own self-care as she is used to prioritizing other things. Pt stated current stressor is ongoing anxiety about learning skills to improve her ability to better manage mental health symptoms. Pt to continue IOP level of care to improve depression and anxiety management, continue to improve consistent use of healthy coping, and prevent decompensation Narrative Note: []
--- NOTE | 2019-06-22 10:13 | BH.SGPN.GN ---
Behaviors/Verbalizations/Mental Status: []Client alert and oriented, casual dress, hygiene tended to. Eye contact fair. Motor activity appropriate. Speech within normal limits. Affect constricted, mood anxious. Thoughts linear, logical, no signs of hallucinations or delusions. Client Response/Progress/Benefit: []Pt active participant throughout group session AEB pt providing input throughout and listening attentively to others. Pt reported she can relate to the quote because it?s important to have support that she can use when needed but also be able to rely on self if others are not available. Pt worked with group to identify what makes up a support system which includes: pets, friends, self-accountability, family, medication, co-workers/HR, community agencies, therapist and other providers, group members, yana talks, self-care/hobbies, inspirational videos, advent and spirituality. Pt stated a barrier to utilizing support is not wanting to admit needs help or fear that she is a burden to others. Seemed to benefit from increased awareness of different supports available and identifying benefits of social support. Pt to continue IOP to increase healthy coping, challenge distorted thoughts and prevent decompensation. Narrative Note: []
--- NOTE | 2019-06-22 11:14 | BH.SGPN.GN ---
Behaviors/Verbalizations/Mental Status: []Client alert and oriented, casually dressed and groomed. Eye contact good. Motor activity appropriate. Speech within normal limits. Affect unable to gather due to wearing a mask as a precaution for COVID-19, mood anxious. Thoughts linear, logical, no signs of hallucinations or delusions. Client Response/Progress/Benefit: []Client an active participant AEB taking notes and sharing during the group discussion. Client participated in group discussion about the different types of support and benefits different types of support can provide. Client identified she would like to increase social supports in the area of professional help by getting connected with mental health services. Client stated she wants to do this by practicing acceptance that she needs help and being more open with her communication. Client shared this will help client learn about her diagnosis, learn coping skills, and better manage her mental health symptoms. Client reported her barriers to seeking this support are difficulty asking for help, family stigma, and fear of the unknown. Client receptive to ideas for overcoming these barriers. Appeared to benefit from identifying the type of support client wants to improve and identifying ways to work towards improving this support. Will continue IOP tx to prevent decompensation of depressive symptoms, reduce panic attacks, and improve overall functioning. Narrative Note: []
--- NOTE | 2019-06-23 14:24 | BH.COMM ---
Communication Note - Communication with Client Communication Note: Client no called/ no showed for IOP today. Therapist called client to check in and client reported she did not think she was signed up for today. Client reports she is safe and okay today. Client stated she plans to come four days next week.
--- NOTE | 2019-06-27 13:47 | BH.COMM ---
Communication Note - Communication with Client Communication Note: Client no called/no showed for group today. Client left therapist a message later in the afternoon expressing that client is unsure of continuing the program due to external stressors and self-reported difficulty with follow through. Therapist will reach out to client again this week to further discuss plan of care.
--- NOTE | 2019-07-03 13:47 | BH.DS_ITS ---
Discharge Summary - Demographics Date of Admission:: 06/21/19 Discharge Date: 07/03/19 Presenting Problems at Admission:: Client is a 24 year-old female with a history of MDD, PTSD, and illness anxiety. Client was referred to [facility] by her PCP Dr. Garcia due to client's worsening anxiety, daily panic attacks, and medical ruminations. History of suicidal ideations and previous attempts. Client denied any active suicidal ideations, plan, or intent while in [facility]. At admission, client endorsed erratic sleep, increased appetite, erratic energy, increased irritability, intrusive thoughts, and daily panic attacks. Client also endorsed medical anxiety including fear that I'm going to and fear of blood clots and heart issues. Client's mental health symptoms were impacting client's ability to function. Client reports she has not been able to keep a job, reports avoidance behaviors, and increased conflicts with supports. . Discharge Diagnoses:: Illness anxiety disorder F45.21; PTSD F43.10; anxiety disorder NOS; depressive disorder NOS; cluster B traits. Reason for Discharge:: Client voluntarily discharged from [facility] and reported she no longer wishes to participate in [facility] level of care. - Treatment Progress During Treatment & Response: No progress due to client's lack of attendance. Client attended [facility] approximately twice and only met once with this individual therapist. Due to limited attendance, client was unable to work on treatment goals or make progress. Issues Still to be Addressed:: Client unable to accomplish treatment goals due to early discharge. Client can benefit from increasing knowledge of healthy coping skills, increasing consistent application of healthy coping skills, and practicing self-care. Client can benefit from ongoing counseling to prevent decompensation of symptoms. Client can benefit from challenging negative thoughts that reinforce illness anxiety, depression, and ruminations. Client shared she struggles with putting other's needs before her own. Client self- reports this results in client not taking care of her mental health. Client was interested in learning about complex trauma and could benefit from gaining more psychoeducation on complex trauma. Lastly, client can benefit from improving her emotional regulation skills. Discharge Recommendations/Instructions:: Client is currently not seeing any providers. Therapist attempted to call client and give her information for outpatient providers, but client did not answer. Therapist left message with options for outpatient mental health providers in the area. Options included [facility], and [facility]. Discharge Handout: Complete Discharge Handout with client on aftercare options and continuity of care.
== END 2019-07-03 14:00 | disposition home or self-care (01) ==
LOC: BHIOP 09:00
PROVIDERS: PCP Internal Medicine; Referring Provider Psychiatry & Neurology Psychiatry; Visit Provider Psychiatry & Neurology Psychiatry
DX: F41.9 Anxiety disorder, unspecified (principal); F33.9 Major depressive disorder, recurrent, unspecified; F43.10 Post-traumatic stress disorder, unspecified; Z91.5 Personal history of self-harm; F12.90 Cannabis use, unspecified, uncomplicated; Z79.899 Other long term (current) drug therapy; K21.9 Gastro-esophageal reflux disease without esophagitis
CPT/HCPCS: 90792; H0035; H2020; T1002; 90837

== ENCOUNTER 2019-08-29 13:11 | Emergency (ER) | payer MEDICAID, SELFPAY ==
[2019-06-14 10:10] VITALS: BMI 29.7
[2019-08-29 13:12] VITALS: BP 110/79; PULSE 80; RESP 14; TEMP 36.8; O2SAT 97; BMI 29.9
--- NOTE | 2019-08-29 13:19 | EKG12_ITS ---
Test Reason : CP Blood Pressure : / mmHG Vent. Rate : 055 BPM Atrial Rate : 055 BPM P-R Int : 132 ms QRS Dur : 086 ms QT Int : 388 ms P-R-T Axes : 040 073 041 degrees QTc Int : 371 ms Sinus bradycardia with sinus arrhythmia Otherwise normal ECG Confirmed by MARISA BROOKS, SHANTELL ([id number]), editor city MIAN MALLORY ([id number]) on 08/31/2019 9:38:30 AM Referred By: DC Confirmed By:SHANTELL CUNNINGHAM MD
--- NOTE | 2019-08-29 13:19 | RAD_ITS ---
STUDY: X-RAY CHEST REASON FOR EXAM: Female, 24 years old. CHEST PAIN/ HX ARRYTHMIA TECHNIQUE: Single AP portable view of the chest. COMPARISON: Comparison is made with prior study March 15, 2019. FINDINGS: EKG electrodes are seen. The lungs are clear and expanded. There is no demonstrated pleural abnormality. Normal size heart. Normal mediastinum and fe. Normal visualized pulmonary arteries. Normal visualized aortic arch and descending thoracic aorta. Normal visualized thoracic spine. Normal visualized ribs, clavicles, and shoulders. There is no demonstrated abnormality of the visualized soft tissue structures of the upper abdomen. RAD/Chest 1 View (Portable) IMPRESSION: Normal x-ray examination of the chest. Electronically Signed: Rudy Carvalho, at 14:31 EDT , Service support ,
[2019-08-29 13:50] VITALS: O2SAT 98
[2019-08-29 13:54] LABS: Absolute Lymphocyte Count 1.55 X10^3/uL (0.83-4.51); Absolute Neutrophil Count 2.6 X10^3/uL (2.0-7.7); Basophil# 0.01 X10^3/uL; Basophil% 0.2 % (0-1); Eosinophils% 2.2 % (0-5); Hematocrit 35.2 % (37-47); Hemoglobin 11.6 g/dL (12.0-15.0); Lymphocyte # 1.55 X10^3/ul (4.0); Lymphocyte % 33.7 % (19-41); Mean Corpuscular Hgb 30.4 pg (27.0-32.0); Mean Corpuscular Volume 92.4 fL (81-99); Mean Platelet Vol. 11.2 fl (6.2-12.0); Monocyte# 0.34 X10^3/uL; Monocyte% 7.4 % (0-10); NRBC Flagged by Analyzer 0 % (0-5); Neutrophil # 2.59 X10^3/uL (2.7-7.7); Neutrophil % 56.3 % (47-70); Platelet Count 298 K/mm3 (150-450); RBC Distribution Width SD 41.2 fl (35.1-43.9); Red Blood Count 3.81 M/mm3 (4.2-5.4); White Blood Count 4.6 K/mm3 (4.4-11.0)
[2019-08-29 14:18] LABS: Anion Gap 6 (5-15); BUN 11 mg/dL (7-18); BUN/Creat Ratio 16.3 RATIO (10-20); Calcium,Total 8.9 mg/dL (8.5-10.1); Chloride 104 mmol/L (98-107); Creatinine, Serum 0.68 mg/dL (0.55-1.02); EST Glomerular Filtration Rate 116 mL/min (>60); Est Glom Filt Rate - Afr Amer 140 mL/min (>60); Estimated Creatinine Clearance 126.19 ml/min; Glucose 94 mg/dL (74-106); Potassium 3.7 mmol/L (3.5-5.1); Sodium Level 137 mmol/L (136-145)
[2019-08-29 15:11] VITALS: BP 112/72; PULSE 50; RESP 18; O2SAT 98
[2019-08-29 16:27] LABS: Internal QC Validated? YES +Cl - CLEAR BKGD; Pregnancy, Serum, hCG Quali. NEGATIVE Negative
[2019-08-29 17:00] VITALS: BP 108/82; PULSE 72; RESP 18; O2SAT 98
--- NOTE | 2019-08-29 17:06 | ED.DCSUM_ITS ---
- ER Visit Summary Date of Service: 08/29/19 Chief Complaint: Chest pain History of Present Illness: The patient is a 24 F who presents with chest pain that began approximately 2 hours prior to arrival. Patient states her pain is over the left parasternal area. Patient describes it as aching. Patient states it is worse with deep breathing and certain movement. Patient states it is better with rest. Patient admits to some nausea but denies any vomiting. Patient denies any shortness of breath or diaphoresis. Patient admits to some reflux symptoms. Patient denies any palpitations, cough, or fever. Patient denies any cardiac or PE risk factors. Physical Examination: Vital signs are stable. Patient is afebrile. Patient is in no acute distress. Oral mucosa is pink and moist. Neck is supple. Trachea is midline. There is no JVD noted. Heart was regular rate and rhythm. Lungs are clear and equal bilaterally. Abdomen is soft. Bowel sounds are normal. There is no tenderness. There is no rebound or guarding noted. Skin is warm dry. Cranial nerves II through XII are intact. There are no focal motor or sensory deficits noted. Extremities are intact. There is no calf tenderness or edema. Test Results: EKG showed sinus bradycardia with a rate of 55. There are no acute ST or T wave changes. This was unchanged compared to previous EKG dated 03/05/2019. CBC shows a mild anemia with a hemoglobin of 11.6 and hematocrit 35.2. Basic metabolic profile was normal. hCG was negative. Troponin was normal. Portable chest x-ray was obtained. There is no acute cardiopulmonary process. This was interpreted by the radiologist and myself. Emergency Department Course and Treatment: Patient was feeling better on reevaluation. Patient had no further pain. Patient has a HEART score of 1. Patient was advised that this is low risk for acute cardiac event. Patient was instructed to follow-up with her primary care physician in 5 to 7 days. Patient understood and was agreeable with the plan. All questions were answered. Disposition: Discharge home Impression: Chest pain of uncertain etiology This note was generated with [employer] software. It may contain incorrect words, spelling, and punctuation that were not noted in review of the chart prior to signing ED Disposition - Plan for ED Patient: Disposition: Home or Assisted Living Diagnosis: Chest pain of uncertain etiology Instructions: ED Chest Pain Atypical Unkn Cause Referrals: Bakari Garcia MD [Primary Care Provider] - 5-7 Days
[2019-08-29 17:19] VITALS: BP 108/82; PULSE 74; RESP 14; O2SAT 99
== END 2019-08-29 17:27 | disposition home or self-care (01) ==
PROVIDERS: Emergency Provider Emergency Medicine; PCP Internal Medicine
DX: R07.9 Chest pain, unspecified (principal); R00.1 Bradycardia, unspecified; R11.0 Nausea; K21.9 Gastro-esophageal reflux disease without esophagitis; F41.9 Anxiety disorder, unspecified; F12.90 Cannabis use, unspecified, uncomplicated
CPT/HCPCS: 71045; 80048; 84484; 84703; 85025; 93005; 99284; A4216

== ENCOUNTER 2019-10-13 18:43 | Emergency (ER) | payer MEDICAID, SELFPAY ==
[2019-10-13 18:43] VITALS: BP 106/74; PULSE 89; RESP 18; TEMP 36.3; O2SAT 100; BMI 29.7
--- NOTE | 2019-10-13 18:59 | CT_ITS ---
STUDY: CT ABDOMEN AND PELVIS WITHOUT CONTRAST REASON FOR EXAM: Female, 24 years old. RIGHT FLANK PAIN RADIATES TO ABDOMEN, RIGHT SIDE VAGINAL SWELLING, HEMATURIA, NEGATIVE RADIATION DOSAGE (If Supplied By Facility): CTDIvol = ( 12.68 ) mGy, DLP = ( 724.97 ) mGycm TECHNIQUE: Transaxial images were obtained from the dome of the diaphragm to the symphysis pubis without oral contrast, and without intravenous contrast. Sagittal and coronal images were reconstructed. Individualized dose optimization techniques were used for this CT. COMPARISON: None. FINDINGS: The visualized lung bases are unremarkable. The visualized portions of the heart are within normal limits. Normal liver. Contracted thick-walled gallbladder without calcified stones likely physiologic however if concern for gallbladder disease ultrasound recommended.. Normal spleen. Normal pancreas. Normal bilateral adrenal glands. Normal right kidney. Normal left kidney. Normal visualized stomach. Normal small intestine. Normal colon. The appendix is visualized and appears normal. Normal abdominal aorta. Normal inferior vena cava. Normal retroperitoneum. There is a hypoattenuated lesion in the right vaginal vault measuring approximately 3.2 x 3 cm which may represent infected Bartholin''s cyst and clinical correlation recommended Uterus is deviated to the right depressing the dome of the bladder. There is a left ovarian cyst measuring approximately 3.2 x 2.3 cm. Normal abdominal wall. Normal osseous structures. CT/Abdomen/Pelvis without Cont IMPRESSION: Findings which may be consistent with infected Bartholin''s cyst in the right vaginal vault. Clinical correlation recommended Contracted thick-walled gallbladder without calcified stones likely physiologic however if concern for gallbladder disease ultrasound recommended. Electronically Signed: Emerson Thurston MD at 20:30 EDT , Service support ,
--- NOTE | 2019-10-13 19:01 | ED.VISSUMM ---
- ER Visit Summary Date of Service: 10/13/19 Chief Complaint: Right flank pain History of Present Illness: The patient is a 24 F who presents with right flank pain that began today. Patient describes the pain is dull and aching but sharp at times. Patient states the pain is localized to the right flank and radiates to her right lower abdomen. Patient admits to nausea but denies any vomiting. Patient denies any diarrhea, melena, or hematochezia. Patient denies any dysuria or urgency. Patient states she just started her menstrual period which is the normal time for her to start her menstrual cycle. Patient does admit to some vaginal itching. Patient also admits to some swelling on the right side of her vagina. Patient denies any discharge or drainage. Physical Examination: Vital signs are stable. Patient is afebrile. Patient is in no acute distress. Oral mucosa is pink and moist. Neck is supple. Trachea is midline. There is no JVD. Heart was regular rate and rhythm. Lungs are clear and equal bilaterally. Abdomen is soft. Bowel sounds are normal. There is some right CVA tenderness. There is no rebound or guarding noted. Cranial nerves II through XII are intact. There are no focal motor or sensory deficits noted. Pelvic exam did show some swelling of the right labia minora. There is no definite fluctuance. I do not appreciate an abscess in this area. There is some tenderness to palpation over this area. There is no vaginal discharge noted. Test Results: CBC shows a mild anemia with a hemoglobin of 11.9. Basic metabolic profile was within normal limits. Urinalysis shows a leukocyte esterase of 100 with 25-50 white blood cells and 1+ bacteria. CT scan of the abdomen and pelvis was obtained. There is no acute intra-abdominal pathology. There is a contracted thick-walled gallbladder without calcified stones. There may be a Bartholin cyst in the right vaginal vault. This was interpreted by the radiologist and reviewed by myself. GC and Chlamydia cultures were obtained and are pending. Wet prep was obtained and was negative for trichomonas or white blood cells. Emergency Department Course and Treatment: Patient was given IV fluids, Zofran, and Toradol. She is feeling better on reevaluation. Patient was given a prescription for Bactrim. Patient was given her first dose here. Patient was instructed to use warm sitz baths. Patient was instructed to follow-up with her primary care physician in 5 to 7 days. Patient understood and was agreeable with the plan. All questions were answered. Disposition: Discharge home Impression: 1. Urinary tract infection 2. Bartholin cyst This note was generated with [employer] dictation software. It may contain incorrect words, spelling, and punctuation that were not noted in review of the chart prior to signing ED Disposition - Plan for ED Patient: Disposition: Home or Assisted Living Diagnosis: Urinary tract infection Instructions: ED CYSTITIS Female Adult Prescriptions: Smz/Tmp Ds [Bactrim Ds] 1 tab PO BID #14 tab Prescription Printed Referrals: Bakari Garcia MD [Primary Care Provider] - 5-7 Days Yara Herzog CNM [Certified Nurse Transport Medic] - 3-5 Days
[2019-10-13] MEDS: 0.9% Normal Saline 1,000 ML 250 ML IV (19:16)
[2019-10-13] MEDS: Ondansetron 4 MG/2 ML Vial IV (19:17)
[2019-10-13] MEDS: Ketorolac 30 MG/ML Syringe IV (19:18)
[2019-10-13 19:31] LABS: Absolute Lymphocyte Count 1.69 X10^3/uL (0.83-4.51); Absolute Neutrophil Count 6.7 X10^3/uL (2.0-7.7); Basophil# 0.03 X10^3/uL; Basophil% 0.3 % (0-1); Eosinophil# 0.12 X10^3/uL; Eosinophils% 1.3 % (0-5); Hematocrit 36.4 % (37-47); Hemoglobin 11.9 g/dL (12.0-15.0); Lymphocyte # 1.69 X10^3/ul (4.0); Lymphocyte % 18.4 % (19-41); Mean Corp Hgb Conc 32.7 g/dL (32-36); Mean Corpuscular Hgb 30.1 pg (27.0-32.0); Mean Corpuscular Volume 91.9 fL (81-99); Mean Platelet Vol. 11.8 fl (6.2-12.0); Monocyte# 0.57 X10^3/uL; Monocyte% 6.2 % (0-10); NRBC Flagged by Analyzer 0 % (0-5); Neutrophil # 6.73 X10^3/uL (2.7-7.7); Neutrophil % 73.6 % (47-70); Platelet Count 282 K/mm3 (150-450); RBC Distribution Width CV 12.7 % (11.6-14.6); Red Blood Count 3.96 M/mm3 (4.2-5.4); White Blood Count 9.2 K/mm3 (4.4-11.0)
[2019-10-13 19:42] LABS: Internal QC Validated? YES +Cl - CLEAR BKGD; Pregnancy, Serum, hCG Quali. NEGATIVE Negative
[2019-10-13 19:44] LABS: Anion Gap 6 (5-15); BUN 11 mg/dL (7-18); BUN/Creat Ratio 13.8 RATIO (10-20); Calcium,Total 9.2 mg/dL (8.5-10.1); Chloride 106 mmol/L (98-107); EST Glomerular Filtration Rate 95 mL/min (>60); Est Glom Filt Rate - Afr Amer 115 mL/min (>60); Estimated Creatinine Clearance 107.27 ml/min; Glucose 105 mg/dL (74-106); Potassium 3.7 mmol/L (3.5-5.1); Sodium Level 140 mmol/L (136-145)
[2019-10-13 20:01] LABS: Mucous, Urine 0 SEEN /hpf (<or=2+)
[2019-10-13 20:05] LABS: Color, Urine Yellow (Yellow); Glucose, Dipstick Normal (Normal); Ketone-Dipstick Negative (Negative); Leukocyte Esterase-Dipstick 100 /ul (Negative); Nitrite-Dipstick Negative (Negative); Occult Blood-Urine 10 /ul (Negative); Protein-Dipstick Negative (Negative); Urine Bilirubin Dipstick Negative (Negative); Urine Clarity Cloudy (Clear); Urine Urobilinogen Normal (Normal)
[2019-10-13 20:13] LABS: Squamous Epithelial Cells - UA 0-5 SEEN /hpf (5-10)
[2019-10-13 20:14] LABS: Bacteria 1+ /hpf (None Seen); Red Blood Cells-Urine 0-5 SEEN /hpf (0-5); White Blood Cells 25-50 SEEN /hpf (0-5)
[2019-10-13] MEDS: Smz/Tmp Ds Tablet 1 TABLET PO (21:30)
[2019-10-13 21:34] VITALS: PULSE 60; RESP 16
[2019-10-13 21:46] LABS: Chlamydia Trachomatis by PCR Negative (Negative); Neisserai gonorrhoeae by PCR Negative (Negative); Probe Check PASS; Sample Adequacy Control PASS; Specimen Processing Control PASS
== END 2019-10-13 21:35 | disposition home or self-care (01) ==
PROVIDERS: Emergency Provider Emergency Medicine; PCP Internal Medicine
DX: N39.0 Urinary tract infection, site not specified (principal); N75.0 Cyst of Bartholin's gland; F12.90 Cannabis use, unspecified, uncomplicated
CPT/HCPCS: 74176; 80048; 81001; 84703; 85025; 87210; 87491; 87591; 96361; 96374; 96375; 99284; J7030; A4216; J2405

== ENCOUNTER 2021-06-07 20:25 | Outpatient (CLI) | payer MEDICAID, SELFPAY ==
[2021-06-07 20:48] VITALS: TEMP 37.4
[2021-06-07 20:49] VITALS: BP 129/79; PULSE 79; O2SAT 100
[2021-06-07 20:50] VITALS: BMI 32.5
[2021-06-07] MEDS: Acetaminophen 500 MG Tablet 1000 MG PO (22:59)
[2021-06-07 23:00] LABS: Mucous, Urine 0 SEEN /hpf (<or=2+); Red Blood Cells-Urine 0 SEEN /hpf (0-5)
[2021-06-07 23:02] LABS: Color, Urine Yellow (Yellow); Glucose, Dipstick Normal (Normal); Ketone-Dipstick 5 mg/dl (Negative); Leukocyte Esterase-Dipstick 25 /ul (Negative); Nitrite-Dipstick Negative (Negative); Occult Blood-Urine Negative /ul (Negative); Protein-Dipstick Negative (Negative); Urine Bilirubin Dipstick Negative (Negative); Urine Clarity Clear (Clear); Urine Urobilinogen Normal (Normal)
--- NOTE | 2021-06-07 23:07 | OB.TRI.NOTE ---
HPI - General HPI Narrative DOMENICO PABON, is a 26 F at 36.3 weeks gestation who presents to triage with pelvic pain and mild cramping. She has been experiencing increased round ligament pain and lightening crotch but wanted to confirm that she was not having contractions. Positive movement. Denies any vaginal bleeding or loss of fluid. Maternal Data Information CLEO Calculator Estimated Delivery Date Method Current WG Current Estimate 07/02/21 Manual 36w 4d PFSH PFSH Medical History Anxiety disorder, unspecified Chest pain CIRO (generalized anxiety disorder) GERD (gastroesophageal reflux disease) Illness anxiety disorder Major depressive disorder, recurrent episode, unspecified Mild tetrahydrocannabinol (THC) abuse PTSD (post-traumatic stress disorder) Shortness of breath Vitamin D deficiency Home Medications [id number] [] 1 tab PO DAILY 06/07/21 [History Last Taken 06/04/21] Allergy/AdvReac Type Severity Reaction Status Date / Time No Known Allergies Allergy Verified 04/22/20 13:33 Family History Father Diabetes Grandfather Cancer Grandmother Cancer Breast Mother Cancer cervical Fibromyalgia Multiple sclerosis Social History Smoking Status: Never smoker alcohol intake: never substance use type: marijuana caffeine: No ROS Eyes Eyes: Denies blurry vision Cardiovascular Cardiovascular: Reports none; Denies chest pain at rest, chest pain with activity or dizziness Respiratory/Chest Respiratory/Chest: Denies cough or dyspnea Gastrointestinal Gastrointestinal: Reports none and other; Denies diarrhea or vomiting Genitourinary Genitourinary: Denies dysuria Musculoskeletal Musculoskeletal: Reports none Integumentary Integumentary: Reports none; Denies rash Neurologic Neurologic: Denies dizziness, headache(s) or other visual disturbances Psychiatric Psychiatric: Reports none NST FHR Rate Baby A Baseline: 135 Variability:: Moderate Accelerations:: 15 x 15 Decelerations:: None NST Reactive:: Yes FHR Category:: Category I Uterine Activity:: None noted Assessment & Plan (1) Anxiety: (2) PTSD (post-traumatic stress disorder): (3) Round ligament pain: PLAN: CE- 0/50-3- no change UA collected and sent NST reactive- no contractions noted D/C home with labor precautions and follow up in office this week
[2021-06-07 23:16] LABS: Bacteria 2+ /hpf (None Seen); Squamous Epithelial Cells - UA 5-10 SEEN /hpf (5-10); White Blood Cells 10-25 SEEN /hpf (0-5)
== END 2021-06-07 23:05 | disposition home or self-care (01) ==
LOC: WPOUT 20:39 → WP 20:39
PROVIDERS: PCP Internal Medicine; Visit Provider Advanced Practice Midwife
DX: O26.893 Other specified pregnancy related conditions, third trimester (principal); R10.2 Pelvic and perineal pain; O99.323 Drug use complicating pregnancy, third trimester; F43.10 Post-traumatic stress disorder, unspecified; F12.90 Cannabis use, unspecified, uncomplicated; F41.9 Anxiety disorder, unspecified; Z3A.36 36 weeks gestation of pregnancy
CPT/HCPCS: 59025; 59050; 81001; 99218; G0378

== ENCOUNTER 2021-06-29 07:44 | Inpatient (IN) | payer MEDICAID, SELFPAY ==
[2021-06-29] VITALS (45 sets, daily range): BP systolic 99–135; BP diastolic 53–87; PULSE 57–92; TEMP 36.3–37.4; O2SAT 90–100; BMI 32.4
[2021-06-29 07:29] LABS: ROM Internal Control Test YES-OK TO RESULT pt. (Internal QC)
[2021-06-29 07:31] LABS: ROM Patient Test POSITIVE (Negative)
[2021-06-29] MEDS: Lactated Ringers 1,000 ML 50 ML IV (08:15)
[2021-06-29 08:33] LABS: Absolute Lymphocyte Count 1.47 X10^3/uL (0.83-4.51); Absolute Neutrophil Count 5.6 X10^3/uL (2.0-7.7); Basophil# 0.01 X10^3/uL; Basophil% 0.1 % (0-1); Eosinophil# 0.11 X10^3/uL; Eosinophils% 1.4 % (0-5); Hematocrit 33.2 % (37-47); Hemoglobin 10.5 g/dL (12.0-15.0); Lymphocyte # 1.47 X10^3/ul (0.83-4.51); Lymphocyte % 18.9 % (19-41); Mean Corp Hgb Conc 31.6 g/dL (32-36); Mean Corpuscular Hgb 28.3 pg (27.0-32.0); Mean Corpuscular Volume 89.5 fL (81-99); Mean Platelet Vol. 11.1 fl (6.2-12.0); Monocyte# 0.52 X10^3/uL; Monocyte% 6.7 % (0-10); NRBC Flagged by Analyzer 0 % (0-5); Neutrophil # 5.61 X10^3/uL (2.7-7.7); Neutrophil % 72.1 % (47-70); Platelet Count 322 K/mm3 (150-450); RBC Distribution Width CV 13.3 % (11.6-14.6); RBC Distribution Width SD 43.7 fl (35.1-43.9); Red Blood Count 3.71 M/mm3 (4.2-5.4); White Blood Count 7.8 K/mm3 (4.4-11.0)
[2021-06-29 08:49] LABS: Amphetamine Urine VISTA NEGATIVE (<1000 ng/mL); Barbiturate Urine VISTA NEGATIVE (< 200 ng/mL); Benzodiazepine Urine VISTA NEGATIVE (< 200 ng/mL); Cocaine Urine VISTA NEGATIVE (< 300 ng/mL); Ecstacy Urine VISTA NEGATIVE (< 500 ng/mL); Methadone Urine VISTA NEGATIVE (< 300 ng/mL); PCP Urine VISTA NEGATIVE (< 25 ng/mL); THC Urine VISTA POSITIVE (< 50 ng/mL); Vista UDS pH Range 6
[2021-06-29] MEDS: Oxytocin 30 units/NS 500 ml 30 UNITS/500 ML IV.SOLN IV (09:25)
[2021-06-29] MEDS: Lactated Ringers 500 ML 999 ML IV (13:45)
[2021-06-29] MEDS: fentaNYL-bupivacaine (epidural) 100 ML BAG EPIDURAL ×2 (14:36→19:23)
[2021-06-29] MEDS: Ondansetron 4 MG/2 ML Vial IV (16:36)
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
[2021-06-29] MEDS: Lactated Ringers 1,000 ML 200 ML IV (17:25)
[2021-06-29] MEDS: Oxytocin 30 units/NS 500 ml 30 UNITS/500 ML IV.SOLN 334 UNITS IV (22:44)
--- NOTE | 2021-06-29 23:06 | EX.PCM.OBRPT ---
Assessment & Plan (1) Vaginal delivery: (2) Psychiatric disorder: COMMENT: PTSD from , Bipolar (3) CIRO (generalized anxiety disorder): (4) Major depressive disorder, recurrent episode, unspecified: (5) PTSD (post-traumatic stress disorder): (6) Mild tetrahydrocannabinol (THC) abuse: Maternal Data Information CLEO Calculator Estimated Delivery Date Method Current WG Current Estimate 07/02/21 Manual 39w 4d Vaginal Delivery Maternal Presentation Maternal Presentation: Spontaneous Rupture of Membranes Type of Induction: Pitocin (augmentation with PROM) Operative Information Date of Procedure: 06/29/21 Pre-Operative Diagnosis: PROM Post-Operative Diagnosis: with first degree perineal laceration Surgery / Procedure Performed: Spontaneous Vaginal Delivery Type of Anesthesia: Epidural Estimated Blood Loss: 350 ml Time of Delivery: 22:42 Findings Description of Procedure: Progressed to complete dilation with urge to push. of viable female infant over first degree perineal laceration, APGARS 8,9. head delivered with body immediately forthcoming. Placed on maternal abdomen. Mouth and nares suctioned for secretions. Pitocin started for active 3rd stage management. Cord doubly clamped and cut by FOB. Placenta delivered via theresa intact with 3 vessel cord. Perineum inspected and revealed first degree perineal laceration with bilateral periurethral lacerations, repaired under epidural analgesia and 3.0 vicryl rapide. Vaginal sweep completed, sponge and instrument count correct. Mom and baby stable, planning to breastfeed. Family bonding well. notified of delivery. Presentation: Vertex and JESSICA Amniotic Membrane Rupture Type: Spontaneous Amniotic Fluid Description: Clear Placental Delivery Description: Spontaneous Placenta Disposition: [facility] Cord Vessel Description: 3 Vessels Cord Entanglement: None A Gender: Female (1 minute): 8 (5 minute): 9 Delayed Cord Clamping: Yes Post Vaginal Delivery Medications Given After Delivery: IV Pitocin Episiotomy Description: None Laceration: Perineal Extension/lac and 1st degree Complication Complications: None
[2021-06-30] VITALS (16 sets, daily range): BP systolic 97–127; BP diastolic 47–76; PULSE 58–81; RESP 14–18; TEMP 36.5–38.1; O2SAT 97–98
[2021-06-30] MEDS: Ibuprofen 600 MG Tablet PO ×2 (00:29→13:59)
[2021-06-30] MEDS: 0.9% Saline Lock 10 ML Syringe IV (01:53)
[2021-06-30] MEDS: Acetaminophen 500 MG Tablet 1000 MG PO ×2 (04:25→20:17)
[2021-06-30 07:12] LABS: Hemoglobin 8.8 g/dL (12.0-15.0); Mean Corp Hgb Conc 31.4 g/dL (32-36); Mean Corpuscular Hgb 28.2 pg (27.0-32.0); Mean Corpuscular Volume 89.7 fL (81-99); Mean Platelet Vol. 10.7 fl (6.2-12.0); Platelet Count 263 K/mm3 (150-450); RBC Distribution Width CV 13.7 % (11.6-14.6); RBC Distribution Width SD 44.6 fl (35.1-43.9); Red Blood Count 3.12 M/mm3 (4.2-5.4); White Blood Count 11.7 K/mm3 (4.4-11.0)
--- NOTE | 2021-06-30 08:10 | PN.OBGYN_ITS ---
Subjective Subjective Patient seen at bedside. Feeling good. Denies any pain at this time. Ambulating and voiding without difficulty. with minimal support. Objective Data Objective Data Vital Signs: Vital Signs Temp Pulse Resp BP Pulse Ox 97.7 F L 58 L 18 108/51 L 97 06/30/21 04:20 06/30/21 04:20 06/30/21 04:20 06/30/21 04:20 06/30/21 01:15 Oxygen Delivery Method Room Air Weight: 207 lb 3.752 oz Body Mass Index (BMI) 32.4 Intake & Output: Intake and Output for Last 24 Hours 06/28/21 06/29/21 06/30/21 23:59 23:59 23:59 Intake Total 2756.94 / 2756.94 333 / 333 Output Total 400 / 400 Balance 2356.94 / 2356.94 333 / 333 Lab / Micro Data Result Diagrams: 06/30/21 07:02 Labs: Laboratory Results - last 24 hr 06/29/21 08:15: WBC 7.8, RBC 3.71 L, Hgb 10.5 L, Hct 33.2 L, MCV 89.5, MCH 28.3, MCHC 31.6 L, RDW Std Deviation 43.7, RDW Coeff of Caty 13.3, Plt Count 322, MPV 11.1, Immature Gran % (Auto) 0.800, Neut % (Auto) 72.1 H, Lymph % (Auto) 18.9 L, [place] % (Auto) 6.7, Eos % (Auto) 1.4, Baso % (Auto) 0.1, Absolute Neuts (auto) 5.6, Absolute Lymphs (auto) 1.47, Nucleated RBC % 0 06/29/21 08:15: Blood Type A POSITIVE, Antibody Screen NEGATIVE 06/29/21 08:15: Urine Opiates Screen NEGATIVE, Urine Methadone Screen NEGATIVE, Ur Barbiturates Screen NEGATIVE, Ur Phencyclidine Scrn NEGATIVE, Ur Amphetamines Screen NEGATIVE, MDMA (Ecstasy) Screen NEGATIVE, U Benzodiazepines Scrn NEGATIVE, Urine Cocaine Screen NEGATIVE, U Cannabinoids Screen POSITIVE H, Ur Drug Screen Comment 06/30/21 07:02: WBC 11.7 H, RBC 3.12 L, Hgb 8.8 L, Hct 28.0 L, MCV 89.7, MCH 28.2, MCHC 31.4 L, RDW Std Deviation 44.6 H, RDW Coeff of Caty 13.7, Plt Count 263, MPV 10.7 Micro: Microbiology 06/29/21 08:15 Nasal Secretion SARS-CoV-2 Antigen (Rapid) - Final ROS Eyes Eyes: Denies blurry vision, change in vision or spots in vision ENT HEENT: Denies dizziness or headache(s) Cardiovascular Cardiovascular: Denies abdominal pain, chest pain or dyspnea Respiratory/Chest Respiratory/Chest: Denies cough, dyspnea, shortness of breath at rest or shortness of breath with exertion Gastrointestinal Gastrointestinal: Denies abdominal pain, diarrhea or vomiting Genitourinary Genitourinary: Denies change in urinary stream, difficulty urinating or dysuria Musculoskeletal Musculoskeletal: Reports none Integumentary Integumentary: Denies rash Neurologic Neurologic: Denies dizziness, headache(s), memory loss or weakness Physical Exam Const alert and no apparent distress General Appearance: cooperative and comfortable Exam Limitations: no limitations HEENT normocephalic Eyes General Eye: normal appearance of both eyes Neck full ROM General: normal visual inspection Chest Chest: symmetrical chest wall rise Resp normal respiratory effort and normal air movement Effort and Inspection: symmetric chest movement Auscultation: clear to auscultation bilaterally Cardio regular rate and regular rhythm GI normal to inspection, nondistended, normoactive bowel sounds Back/Spine normal ROM Extremity full ROM and no calf tenderness General Extremity: normal exam except as noted Skin no rashes or lesions noted Neuro CN's II-XII intact bilaterally Psych mental status grossly normal Assessment & Plan (1) Vaginal delivery: (2) CIRO (generalized anxiety disorder): (3) Care and examination of lactating mother: PLAN: PPD #1 Routine care support Nexplanon placement prior to discharge Anticipate discharge home tomorrow
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
[2021-06-30] MEDS: Etonogestrel 68 MG IMPLANT SC (17:50)
--- NOTE | 2021-06-30 18:10 | PCM.PN.BLA ---
Progress Note Patient seen at bedside. Patient requesting discharge home tonight after 24 hours. Requesting Nexplanon placement prior to discharge home tonight. R/B/A discussed and consent signed at bedside. Physical Exam Const alert and no apparent distress General Appearance: cooperative and comfortable Exam Limitations: no limitations HEENT normocephalic Eyes General Eye: normal appearance of both eyes Neck full ROM General: normal visual inspection Chest Chest: symmetrical chest wall rise Resp normal respiratory effort and normal air movement Effort and Inspection: symmetric chest movement Auscultation: clear to auscultation bilaterally Cardio regular rate and regular rhythm GI normal to inspection, nondistended, normoactive bowel sounds Back/Spine normal ROM Extremity full ROM and no calf tenderness General Extremity: normal exam except as noted Skin no rashes or lesions noted Neuro CN's II-XII intact bilaterally Psych mental status grossly normal Assessment & Plan Assessment/Plan (1) Vaginal delivery: (2) Anxiety: (3) Insertion of Nexplanon: PLAN: PPD 1 Nexplanon inserted in right arm without incident. Steri strips and pressure dressing applied. Patient to remove after 24 hours. Routine care support D/C home after 24 hours with follow up in office
--- NOTE | 2021-06-30 18:14 | PCM.DC ---
Discharge Instructions Diet Discharge Diet: No restrictions Activity May resume sexual activity in: 6-8 weeks Weight Bearing Status: Weight bearing as tolerated Dressing / Incision Call your doctor if you observe: Fever of 101 or Higher, Inability to urinate, Using more than 1 pad per hour, Shortness of breath, Chest pain, Calf discomfort and Uncontrolled pain Follow Up Care Please Follow Up With: Lien Moon CNM When: 2 weeks virtual visit/ 6 weeks in office Test Results: Test results from this visit will be discussed in further detail at your follow-up appointment, if applicable. Discharge Plan Admission Admit Date/Time: 06/29/21 07:44 Primary Reason for Your Visit: labor and delivery Attending Provider: Yara Herzog Primary Care Provider: Bakari Garcia Discharge Orders/Prescriptions Prescriptions: Continued [id number] 1 mg Tablet 1 tab PO DAILY RF: 0 Referrals / Follow Up: Bakari Garcia MD [Primary Care Provider] - Disposition Disposition (needs filled in before D/C Order can be placed): Home, Self Care
--- NOTE | 2021-06-30 18:16 | PCM.OP.PRO ---
Assessment & Plan Assessment/Plan (1) Insertion of Nexplanon: Procedure Report Date of Procedure: 06/30/21 Right arm sprayed with lidocaine spray. Area cleaned with Betadine swab. Nexplanon luis alberto inserted without incident in right arm without incident. Steri strips and pressure dressing applied. Luis Alberto palpated by provider and patient under skin.
[2021-07-01 04:00] VITALS: BP 109/61; PULSE 72; RESP 16; TEMP 36.7
== END 2021-07-01 04:20 | disposition home or self-care (01) | DRG 560 ==
LOC: WPOUT 07:46 → WP 07:46
PROVIDERS: Admitting Provider Advanced Practice Midwife; PCP Internal Medicine; Visit Provider Advanced Practice Midwife
DX: O70.0 First degree perineal laceration during delivery (principal); Z37.0 Single live birth; O99.324 Drug use complicating childbirth; F31.9 Bipolar disorder, unspecified; F12.10 Cannabis abuse, uncomplicated; O99.344 Other mental disorders complicating childbirth; O71.82 Other specified trauma to perineum and vulva; Z30.46 Encounter for surveillance of implantable subdermal contraceptive; F41.1 Generalized anxiety disorder; F43.10 Post-traumatic stress disorder, unspecified; O42.92 Full-term premature rupture of membranes, unspecified as to length of time between rupture and onset of labor; Z3A.39 39 weeks gestation of pregnancy
CPT/HCPCS: 59025; 59050; 80307; 84112; 85025; 85027; 86850; 86900; 86901; 87426; 99218; J7120; A4216; G0378; J2405

== ENCOUNTER 2024-01-08 23:21 | Emergency (ER) | payer MEDICAID, SELFPAY ==
[2024-01-08 23:22] VITALS: BP 146/109; PULSE 105; RESP 20; TEMP 36.6; O2SAT 97; BMI 30.4
--- NOTE | 2024-01-08 23:32 | RAD_ITS ---
EXAM: XR LEFT ANKLE COMPLETE, 3 OR MORE VIEWS CLINICAL INDICATION: Injury/Pain TECHNIQUE: Frontal, lateral and oblique views of the left ankle. COMPARISON: No relevant prior studies available. FINDINGS: BONES/JOINTS: Unremarkable. No acute fracture. No subluxation. Normal alignment. Preservation of the joint space. The ankle joint space is symmetric. No sclerotic or destructive changes observed. SOFT TISSUES: Soft tissue swelling noted about the lateral and anterior aspect of the ankle. No radiopaque foreign body. RAD/Ankle min 3 Views IMPRESSION: Soft tissue swelling. No acute fracture or dislocation. Electronically Signed: Ethan Weldon MD at 0:21 EST ,
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
[2024-01-08] MEDS: Naproxen 500 MG Tablet PO (23:37)
[2024-01-08] MEDS: Ondansetron ODT 4 MG Tablet PO (23:59)
== END 2024-01-09 00:09 | disposition home or self-care (01) ==
PROVIDERS: Emergency Provider Emergency Medicine; PCP Internal Medicine; Visit Provider Emergency Medicine
DX: S93.492A Sprain of other ligament of left ankle, initial encounter (principal); F10.90 Alcohol use, unspecified, uncomplicated; S93.412A Sprain of calcaneofibular ligament of left ankle, initial encounter; F12.90 Cannabis use, unspecified, uncomplicated; X50.9XXA Other and unspecified overexertion or strenuous movements or postures, initial encounter; Y93.02 Activity, running; Y92.59 Other trade areas as the place of occurrence of the external cause
CPT/HCPCS: 73610; 99282

== ENCOUNTER 2024-02-25 23:18 | Emergency (ER) | payer MEDICAID, SELFPAY ==
[2024-02-25 23:19] VITALS: BP 128/62; PULSE 61; RESP 16; TEMP 36.9; O2SAT 98; BMI 32.6
--- NOTE | 2024-02-25 23:35 | ED.VIS.FEGU ---
HPI HPI - Female History of Present Illness Chief Complaint: Vag Bld, Preg Detail of Chief Complaint: Heavy vaginal bleeding Informant: patient Pain Pain: Negative for Pelvic Pain, Vulvar Pain or Vaginal Pain Bleeding Issue: Positive for Vaginal bleeding and Passing clots; Negative for Passing tissue Onset: Days (Onset 4 days ago. Has been heavy for the past several days.) Context: Sudden Onset Timing: Intermittent (Intermittent initially. Now going through a pad per hour) Current Severity: Heavy Current pads/hr: 1 Maximum Severity: Heavy Maximum pads/hr: 1 Associated Symptoms Associated Symptoms: Negative for Dysuria, Frequency, Urgency, Hematuria, Missed Period or Irregular Period Last known menstrual period: Patient thought 4 days ago was the start of her period. Test: - (Equivocal home test) Sexually: Positive for Active P: 1 Ab: 0 Narrative Narrative: Patient is a 28-year-old G1, P1 female who presents with heavy menses that started 3 to 4 days ago. Initially was spotting. She is now going through a pad an hour. She said yesterday she had large clots. She did a home test with a equivocal positive test. She has no history of STI. She has no history of endometriosis. She does report lightheadedness. She denies shoulder pain. She has some cramping pelvic pain. She was started on a new control pill. She discontinued 1 type of control pill. Had hormone test done. She resumed after 1 month. She has not use any other form of control. Prior similar symptoms: No Recent Illness/Hospitalization: No PFSH PFS Medical History Insertion of Nexplanon Care and examination of lactating mother Vaginal delivery Term PROM (premature rupture of membranes) Psychiatric disorder Major depressive disorder, recurrent episode, unspecified Anxiety disorder, unspecified PTSD (post-traumatic stress disorder) Anxiety Shortness of breath GERD (gastroesophageal reflux disease) CIRO (generalized anxiety disorder) PTSD (post-traumatic stress disorder) Vitamin D deficiency Chest pain Mild tetrahydrocannabinol (THC) abuse Home Medications ?Medication ?Instructions ?Recorded ?Last Taken ?Type qsnmxsap-kor-Wj-FA 1 mg 1 tab PO DAILY 06/07/21 06/28/21 14:00 History tablet naproxen 500 mg tablet (Naprosyn) 500 mg PO BID PRN pain #20 tabs 01/08/24 Unknown Rx Allergy/AdvReac Type Severity Reaction Status Date / Time No Known Allergies Allergy Verified 02/25/24 23:23 Family History Father Diabetes Grandfather Cancer Grandmother Cancer Breast Mother Cancer cervical Fibromyalgia Multiple sclerosis Social History (Updated 01/08/24 @ 23:[address] Ronald Houser MD) Smoking Status: Never smoker alcohol intake: current substance use type: marijuana caffeine: No ROS ROS ED Constitutional Constitutional ED: Denies chills, fever(s) or subjective Cardiovascular Cardiovascular: Denies chest pain or palpitations Respiratory/Chest Respiratory/Chest: Denies cough, dyspnea or dyspnea on exertion Gastrointestinal Gastrointestinal: Denies abdominal pain, nausea or vomiting Genitourinary Genitourinary ED: Reports other Details: Per HPI narrative ; Denies dysuria, hematuria or urinary frequency Musculoskeletal Musculoskeletal: Denies arthralgias, myalgias or neck pain Neurologic Neurologic: Denies paresthesias or weakness Psychiatric Psychiatric: Denies anxiety or depression Hematologic/Lymphatic Hematologic/Lymphatic: Denies easy bleeding or easy bruising EXAM Physical Exam Const Vital Signs: 02/25/24 23:19 02/26/24 01:18 Temperature 98.5 F Temperature Source Temporal Pulse Rate 61 59 L Respiratory Rate 16 56 H Blood Pressure 128/62 H Blood Pressure Mean 84 Pulse Ox 98 98 Oxygen Delivery Method Room Air Room Air Positive well nourished and well developed Constitutional Narrative: Vital signs noted. Blood pressure slightly elevated. She is not tachycardic. General Appearance ED: well developed and NAD; Negative for odor of alcohol detected or pallor HEENT Reports moist mucous membranes HEENT Narrative: Head is atraumatic normocephalic. Ears normal. Nares patent. Eyes PERRL and EOMs intact bilaterally General Eye ED: Negative for pale conjunctiva or scleral icterus Neck no lymphadenopathy, supple and no JVD Chest Wall inspection of chest normal and palpation of chest normal Resp normal respiratory effort and clear to auscultation bilaterally Cardio regular rate, regular rhythm, S1 normal heart sound, no murmurs and no JVD GI normal to inspection, nondistended, normoactive bowel sounds, soft to palpation, non-tender, non-distended and no masses Narrative: External genitalia normal. There is blood noted in the vaginal vault approximately 3 to 5 cc. Cervix reveals a nonparous os. There is no bright red blood. There is dark-colored blood noted. Patient had minimal discomfort with pressure against the bladder. Due to body habitus difficult to determine size of the uterus. There is no fullness or mass noted in the adnexa. There is no tenderness in the adnexa. Extremity normal to inspection and full ROM Neuro oriented x3 and CN's II-XII intact bilaterally Sensorium / Orientation: alert Psych mental status grossly normal Skin no rashes or lesions noted and no wounds General Skin Exam: Negative for jaundice or pallor MDM MDM MDM Narrative Medical decision making narrative: Serum test was ordered to determine if patient is or is not . Will need to perform pelvic exam to determine the amount of bleeding and to determine if there is any lesions that may be causing the bleeding versus heavy menstrual bleeding. Since she is not hemodynamically stable does not appear pale with 4 days of bleeding CBC was not obtained at this time. Lab Data Attestation: I reviewed the patient's lab results. Lab results narrative: test is negative. Labs: Laboratory Results - last 24 hr 02/25/24 23:38 Serum , Qual NEGATIVE Discharge Plan Triage Chief Complaint: Vag Bld, Preg ED Provider: Ronald Houser Dx/Rx/DC Orders Clinical Impression: Menorrhagia with regular cycle, GERD (gastroesophageal reflux disease), Illness anxiety disorder Instructions: ED Heavy Menstrual Bleeding Prescriptions: No Action xghqbxqv-qas-Oc-FA 1 mg Tablet 1 tab PO DAILY naproxen [Naprosyn] 500 mg tablet 500 mg PO BID PRN (Reason: pain) Qty: 20 0RF Primary Care Provider: Bakari Garcia Referrals: Bakari Garcia MD [Primary Care Provider] - Activity Restrictions/Additional Instructions: If you continue to have heavy bleeding for more than 2 days contact your header up at the [facility] Print Language: Sri Lankan Disposition Disposition: Home, Self Care
[2024-02-26 00:02] LABS: Internal QC Validated? YES +Cl - CLEAR BKGD; Pregnancy, Serum, hCG Quali. NEGATIVE Negative
[2024-02-26 01:18] VITALS: PULSE 59; RESP 56; O2SAT 98
[2024-02-26 01:48] VITALS: BP 122/58; PULSE 72; RESP 18; TEMP 36.8; O2SAT 99
== END 2024-02-26 01:52 | disposition home or self-care (01) ==
PROVIDERS: Emergency Provider Emergency Medicine; PCP Internal Medicine; Visit Provider Emergency Medicine
DX: N92.0 Excessive and frequent menstruation with regular cycle (principal); K21.9 Gastro-esophageal reflux disease without esophagitis; F41.9 Anxiety disorder, unspecified

== ENCOUNTER 2024-02-28 14:40 | Emergency (ER) | payer MEDICAID, SELFPAY ==
[2024-02-28 14:41] VITALS: BP 111/68; PULSE 75; RESP 20; TEMP 36; O2SAT 100; BMI 32.0
--- NOTE | 2024-02-28 14:45 | EKG12_ITS ---
Test Reason : SOB/PALPS Blood Pressure : */* mmHG Vent. Rate : 77 BPM Atrial Rate : 77 BPM P-R Int : 136 ms QRS Dur : 78 ms QT Int : 358 ms P-R-T Axes : 46 36 10 degrees QTcB Int : 405 ms Normal sinus rhythm with sinus arrhythmia Normal ECG Confirmed by MARISA BROOKS, SHANTELL ([id number]), state editor MIAN MALLORY ([id number]) on 02/29/2024 9:25:05 AM Referred By: Confirmed By: SHANTELL CUNNINGHAM MD
--- NOTE | 2024-02-28 15:15 | RAD_ITS ---
STUDY: X-RAY CHEST REASON FOR EXAM: Female, 28 years old. Chest pain TECHNIQUE: Single AP portable view of the chest. COMPARISON: Comparison is made with prior study dated August 29, 2019. FINDINGS: Minimal increased markings at the left lung base suggestive of mild left basilar atelectasis. There is no demonstrated pleural abnormality. Normal size heart. Normal mediastinum and fe. Normal visualized pulmonary arteries. Normal visualized aortic arch and descending thoracic aorta. Normal visualized thoracic spine. Normal visualized ribs, clavicles, and shoulders. There is no demonstrated abnormality of the visualized soft tissue structures of the upper abdomen. RAD/Chest 1 View (Portable) IMPRESSION: Mild degree of increased linear markings at the left lung base suggestive of mild linear atelectasis. Electronically Signed: Rudy Carvalho MD at 15:27 EST ,
--- NOTE | 2024-02-28 15:47 | ED.VIS.FEGU ---
HPI HPI - Female History of Present Illness Chief Complaint: Shortness of Breath Narrative Narrative: 28-year-old female presents with heavy vaginal bleeding, and lightheadedness that she has had for the last few days. Of note, she states that she changed controls and has been on Mira for 2 months. She has had a menstrual cycle since February 17 which was 10 days ago. Of note, she was seen in the emergency department 2 days ago on an overnight shift because she thought she was having a miscarriage because of heavy vaginal bleeding. She had done a home test which was inconclusive. She states that she had a pelvic exam performed, as well as a test which was negative. She was told to follow-up with her [employer]. She called the nurse post secondary professional at the [facility] and they told her that it is abnormal for her to have this amount of bleeding so she should return to the emergency department. She feels lightheaded when she stands as if she is going to pass out. She has continued bleeding and at times there is use of a pad an hour for her vaginal bleeding. Becomes heavy. She states that she is also having palpitations. She may feel short of breath at times as well. [facility] Medical History Insertion of Nexplanon Care and examination of lactating mother Vaginal delivery Term PROM (premature rupture of membranes) Psychiatric disorder Major depressive disorder, recurrent episode, unspecified Anxiety disorder, unspecified PTSD (post-traumatic stress disorder) Anxiety Shortness of breath GERD (gastroesophageal reflux disease) CIRO (generalized anxiety disorder) PTSD (post-traumatic stress disorder) Vitamin D deficiency Chest pain Mild tetrahydrocannabinol (THC) abuse Home Medications ?Medication ?Instructions ?Recorded ?Last Taken ?Type wefqkvds-mez-We-FA 1 mg 1 tab PO DAILY 06/07/21 06/28/21 14:00 History tablet naproxen 500 mg tablet (Naprosyn) 500 mg PO BID PRN pain #20 tabs 01/08/24 Unknown Rx Allergy/AdvReac Type Severity Reaction Status Date / Time No Known Allergies Allergy Verified 02/25/24 23:23 Family History Father Diabetes Grandfather Cancer Grandmother Cancer Breast Mother Cancer cervical Fibromyalgia Multiple sclerosis Social History Smoking Status: Never smoker alcohol intake: current substance use type: marijuana caffeine: No ROS ROS ED ROS Narrative Constitutional: No fever, no chills. HEENT: No sore throat. No neck pain. No loss of vision. No rhinorrhea. Cardiovascular: No chest pain. Positive palpitations. No pedal edema. Respiratory: No cough, no shortness of breath. Abdominal: No abdominal pain. No nausea. No vomiting. Genitourinary: No dysuria. No hematuria. Heavy vaginal bleeding, positive bleeding x 10 days. Musculoskeletal: No myalgias. No arthralgias. Neurologic: No headaches. Positive dizziness. Positive near syncope/lightheadedness. Skin: No rash. No change in color. Psychiatric: No depression. No anxiety. EXAM Physical Exam Narrative Exam Narrative: Afebrile. Vital signs noted. Nontoxic-appearing. Cardiovascular examination reveals a regular rate and rhythm. Lungs are clear to auscultation bilaterally. Abdomen is soft and nontender with positive bowel sounds. Neurological examination is nonfocal and nonlateralizing. Patient declines pelvic exam as she had one 2 days ago. Const Vital Signs: 02/28/24 14:41 02/28/24 16:15 02/28/24 16:15 Temperature 96.8 F L Temperature Source Temporal Pulse Rate 75 Respiratory Rate 20 H Respiratory Effort Normal Non-Labored Respiratory Depth Normal Respiratory Pattern Normal Blood Pressure 111/68 Blood Pressure Mean 82 Pulse Ox 100 98 Oxygen Delivery Method Room Air Room Air Room Air MDM MDM MDM Narrative Medical decision making narrative: Differential diagnosis includes but not limited to intravascular volume depletion versus anemia versus mental menorrhagia. I have low suspicion for ectopic . Additionally, there may be slight anxiety component as well. Protocol labs were entered per RN. I reviewed her prior visit she had a negative test. Chest x-ray had been obtained and interpreted by myself independently as no evidence of pneumonia, no pneumothorax. I reviewed the radiology report which confirms my independent interpretation but comments on linear atelectasis. Given her continued bleeding, ultrasound will be performed. I reviewed her laboratory work and she has normal white count of 5.1 with hemoglobin normal at 13.2, hematocrit 38.4, platelet count normal at 256. Electrolyte panel is grossly unremarkable with a normal BUN of 16 and creatinine 0.84. High-sensitivity troponin was ordered through protocol but I do not find it necessarily pertinent to her workup. Her troponin is less than 3. I do not feel she needs serial enzymes. Patient does describe lightheadedness and palpitations worse with standing. I discussed with her the possible diagnosis of POTS. She states her mother has POTS. I reviewed the radiology report of the ultrasound and there is no uterine mass or fibroid with no acute process. I discussed the patient with the [employer] manufacturer representative from the [facility] who agrees with outpatient follow-up. Disposition is discharged home in stable condition. History & Record Review Discussion w/independent historian: Patient Additional record(s) reviewed:: Prior ED visit and Prior labs Lab Data Attestation: I reviewed the patient's lab results. Labs: Laboratory Results - last 24 hr 02/28/24 15:35 WBC 5.1 RBC 4.31 Hgb 13.2 Hct 38.4 MCV 89.1 MCH 30.6 MCHC 34.4 RDW Std Deviation 39.5 RDW Coeff of Caty 12.0 Plt Count 256 MPV 11.6 Immature Gran % (Auto) 0.200 Neut % (Auto) 58.5 Lymph % (Auto) 30.9 [place] % (Auto) 8.0 Eos % (Auto) 2.0 Baso % (Auto) 0.4 Absolute Neuts (auto) 3.0 Absolute Lymphs (auto) 1.58 Nucleated RBC % 0 Sodium 138 Potassium 4.0 Chloride 106 Carbon Dioxide 27.0 Anion Gap 5 BUN 16 Creatinine 0.84 Estim Creat Clear Calc 122.62 Est GFR (MDRD) Af Amer 104 Est GFR (MDRD) Non-Af 86 BUN/Creatinine Ratio 19.0 Glucose 101 Calcium 9.5 Troponin I High Sens < 3 L Radiography Diagnostic Testing: Clinical Impression(s) from Imaging Studies Chest X-Ray 02/28/24 15:15 IMPRESSION: Mild degree of increased linear markings at the left lung base suggestive of mild linear atelectasis. Electronically Signed: Rudy Carvalho MD at 15:27 EST , Transvaginal US 02/28/24 15:52 IMPRESSION: No acute findings in the pelvis. Electronically Signed: Riki Garcia MD at 17:15 EST , Management Discussion w/another healthcare provider: Marine Meteorologist ([facility] [employer]) Discharge Plan Triage Chief Complaint: Shortness of Breath ED Provider: Aden Christian Dx/Rx/DC Orders Clinical Impression: Lightheadedness, Menorrhagia with regular cycle, Palpitations Instructions: ED Dysfunctional Uterine Bleeding, ED Palpitations, ED Near-Fainting, Uncertain Cause Prescriptions: No Action glgnqsri-ljs-Ve-FA 1 mg Tablet 1 tab PO DAILY naproxen [Naprosyn] 500 mg tablet 500 mg PO BID PRN (Reason: pain) Qty: 20 0RF Primary Care Provider: Bakari Garcia Referrals: Lien Moon CNM [Med Staff - Adv Practice Prof] - As soon as possible Bakari Garcia MD [Primary Care Provider] - 3-5 Days if not improving Activity Restrictions/Additional Instructions: Follow-up with your [employer] as soon as possible. You may require change in your control. Return to the emergency department with new or worsening symptoms. You may need to follow-up with your primary care physician as well regarding the possibility that you may have POTS. Print Language: Malay Disposition Disposition: Home, Self Care
[2024-02-28 15:48] LABS: Absolute Lymphocyte Count 1.58 X10^3/uL (0.83-4.51); Basophil# 0.02 X10^3/uL; Basophil% 0.4 % (0-1); Hematocrit 38.4 % (37-47); Hemoglobin 13.2 g/dL (12.0-15.0); Lymphocyte # 1.58 X10^3/ul (0.83-4.51); Lymphocyte % 30.9 % (19-41); Mean Corp Hgb Conc 34.4 g/dL (32-36); Mean Corpuscular Hgb 30.6 pg (27.0-32.0); Mean Corpuscular Volume 89.1 fL (81-99); Mean Platelet Vol. 11.6 fl (6.2-12.0); Monocyte# 0.41 X10^3/uL; NRBC Flagged by Analyzer 0 % (0-5); Neutrophil % 58.5 % (47-70); Platelet Count 256 K/mm3 (150-450); RBC Distribution Width SD 39.5 fl (35.1-43.9); Red Blood Count 4.31 M/mm3 (4.2-5.4); White Blood Count 5.1 K/mm3 (4.4-11.0)
--- NOTE | 2024-02-28 15:52 | US_ITS ---
EXAM: US PELVIS TRANSVAGINAL CLINICAL INDICATION: Heavy vaginal bleeding TECHNIQUE: Transvaginal pelvic ultrasound was performed with grayscale and color Doppler imaging. Transvaginal imaging was used for better evaluation of the endometrium and adnexa. COMPARISON: No relevant prior studies available. FINDINGS: UTERUS/CERVIX: The uterus measures 9.1 x 4.3 x 4.8 cm. The endometrium measures 3 mm. Anteverted. There is no uterine mass. RIGHT OVARY: The right ovary measures 2.3 x 1.4 x 1.4 cm. Blood flow is present in the right ovary. LEFT OVARY: The left ovary measures 2.2 x 1.3 x 2.2 cm. Blood flow is present in the left ovary. FREE FLUID: None. BLADDER: Empty bladder which cannot be evaluated with this probe. US/Transvaginal Non- IMPRESSION: No acute findings in the pelvis. Electronically Signed: Riki Garcia MD at 17:15 EST ,
[2024-02-28 16:10] LABS: Anion Gap 5 (5-15); BUN 16 mg/dL (7-18); Calcium,Total 9.5 mg/dL (8.5-10.1); Chloride 106 mmol/L (98-107); Creatinine, Serum 0.84 mg/dL (0.55-1.02); EST Glomerular Filtration Rate 86 mL/min (>60); Est Glom Filt Rate - Afr Amer 104 mL/min (>60); Estimated Creatinine Clearance 122.62 ml/min; Glucose 101 mg/dL (74-106); Sodium Level 138 mmol/L (136-145); Troponin-I HS (w/2H Reflex) < 3 pg/mL (3.0-54.0)
[2024-02-28 16:15] VITALS: O2SAT 98
[2024-02-28 17:35] VITALS: BP 122/74; PULSE 71; RESP 16; TEMP 36.8; O2SAT 98
[2024-02-28 17:43] LABS: Reflex Troponin-HS? (from REC) Y
== END 2024-02-28 17:39 | disposition home or self-care (01) ==
PROVIDERS: Emergency Provider Emergency Medicine; PCP Internal Medicine; Visit Provider Emergency Medicine
DX: R42 Dizziness and giddiness (principal); N93.9 Abnormal uterine and vaginal bleeding, unspecified; N92.0 Excessive and frequent menstruation with regular cycle; R00.2 Palpitations; F12.90 Cannabis use, unspecified, uncomplicated